=== PATIENT | female | born 1950 | race Two or more races ===

== ENCOUNTER 2018-06-18 13:30 | Outpatient (CLI) | payer MEDICARE, OTHER ==
[~2018-06-18 13:30] MED LIST: BP MEDICATION; DIABETES MEDICATION; DOES NOT RECALL MEDS; MAGN27TA2
== END 2018-06-18 23:59 | disposition home health service (06) ==
LOC: WOU 13:30
PROVIDERS: ATTEND Podiatrist Foot & Ankle Surgery
DX: E11.621 Type 2 diabetes mellitus with foot ulcer (principal); L97.523 Non-pressure chronic ulcer of other part of left foot with necrosis of muscle; B35.1 Tinea unguium; B35.3 Tinea pedis; E11.69 Type 2 diabetes mellitus with other specified complication; M86.672 Other chronic osteomyelitis, left ankle and foot; Z79.4 Long term (current) use of insulin
CPT/HCPCS: 11043; A6402; Z7610

== ENCOUNTER 2018-06-27 11:00 | Outpatient (CLI) | payer MEDICARE, OTHER | END 2018-06-27 23:59 | disposition home health service (06) | LOC: WOU 11:00 | PROVIDERS: ATTEND Podiatrist Foot & Ankle Surgery | DX: E11.621 Type 2 diabetes mellitus with foot ulcer (principal); L97.523 Non-pressure chronic ulcer of other part of left foot with necrosis of muscle; E11.69 Type 2 diabetes mellitus with other specified complication; M86.672 Other chronic osteomyelitis, left ankle and foot; I10 Essential (primary) hypertension; B35.1 Tinea unguium; B35.3 Tinea pedis; Z79.4 Long term (current) use of insulin; Z79.82 Long term (current) use of aspirin | CPT/HCPCS: 11043; A6402; Z7610 ==

== ENCOUNTER 2018-07-02 14:00 | Outpatient (CLI) | payer MEDICARE, OTHER ==
[2018-09-12] MEDS ORDERED: CIPR500T5 PO (08:25)
[2018-09-12] MEDS ORDERED: DOXY100C2 PO (08:25)
[2018-09-12] MEDS ORDERED: INSU100I26 SQ (08:25)
== END 2018-07-02 23:59 | disposition home health service (06) ==
LOC: WOU 14:00
PROVIDERS: ATTEND Podiatrist Foot & Ankle Surgery
PROC: 0JQR3ZZ Repair Left Foot Subcutaneous Tissue and Fascia, Percutaneous Approach (ICD-10-PCS; principal; 2018-07-02)
DX: E11.621 Type 2 diabetes mellitus with foot ulcer (principal); L97.525 Non-pressure chronic ulcer of other part of left foot with muscle involvement without evidence of necrosis; B35.1 Tinea unguium; B35.3 Tinea pedis; E11.42 Type 2 diabetes mellitus with diabetic polyneuropathy; E11.69 Type 2 diabetes mellitus with other specified complication; M86.672 Other chronic osteomyelitis, left ankle and foot; I10 Essential (primary) hypertension; Z79.4 Long term (current) use of insulin
CPT/HCPCS: 13131; A6402 ×2; Z7610

== ENCOUNTER 2018-07-09 14:00 | Outpatient (CLI) | payer MEDICARE, OTHER ==
[2018-09-12] MEDS ORDERED: DOXY100C2 PO (08:25)
[2018-09-12] MEDS ORDERED: INSU100I26 SQ (08:25)
[2018-09-12] MEDS ORDERED: CIPR500T5 PO (08:25)
== END 2018-07-09 23:59 | disposition home health service (06) ==
LOC: WOU 14:00
PROVIDERS: ATTEND Podiatrist Foot & Ankle Surgery
DX: E11.621 Type 2 diabetes mellitus with foot ulcer (principal); L97.525 Non-pressure chronic ulcer of other part of left foot with muscle involvement without evidence of necrosis; B35.1 Tinea unguium; L84 Corns and callosities; E11.42 Type 2 diabetes mellitus with diabetic polyneuropathy; I10 Essential (primary) hypertension; E11.69 Type 2 diabetes mellitus with other specified complication; M86.672 Other chronic osteomyelitis, left ankle and foot; L60.3 Nail dystrophy; Z79.4 Long term (current) use of insulin; Z79.899 Other long term (current) drug therapy
CPT/HCPCS: 11042; A6402

== ENCOUNTER 2018-07-16 14:15 | Outpatient (CLI) | payer MEDICARE, OTHER ==
[2018-09-12] MEDS ORDERED: CIPR500T5 PO (08:25)
[2018-09-12] MEDS ORDERED: DOXY100C2 PO (08:25)
[2018-09-12] MEDS ORDERED: INSU100I26 SQ (08:25)
== END 2018-07-16 23:59 | disposition home or self-care (01) ==
LOC: WOU 14:15
PROVIDERS: ATTEND Podiatrist Foot & Ankle Surgery
DX: E11.621 Type 2 diabetes mellitus with foot ulcer (principal); L97.528 Non-pressure chronic ulcer of other part of left foot with other specified severity; E11.42 Type 2 diabetes mellitus with diabetic polyneuropathy; T81.31XA Disruption of external operation (surgical) wound, not elsewhere classified, initial encounter; R60.0 Localized edema; M20.42 Other hammer toe(s) (acquired), left foot; Z79.4 Long term (current) use of insulin
CPT/HCPCS: 11042; A6402; Z7610 ×2

== ENCOUNTER 2018-07-23 14:00 | Outpatient (CLI) | payer MEDICARE, OTHER ==
[2018-09-12] MEDS ORDERED: DOXY100C2 PO (08:25)
[2018-09-12] MEDS ORDERED: INSU100I26 SQ (08:25)
[2018-09-12] MEDS ORDERED: CIPR500T5 PO (08:25)
== END 2018-07-23 23:59 | disposition home health service (06) ==
LOC: WOU 14:00
PROVIDERS: ATTEND Podiatrist Foot & Ankle Surgery
DX: E11.621 Type 2 diabetes mellitus with foot ulcer (principal); L97.522 Non-pressure chronic ulcer of other part of left foot with fat layer exposed; E11.42 Type 2 diabetes mellitus with diabetic polyneuropathy; R60.0 Localized edema; Z79.4 Long term (current) use of insulin; Z79.899 Other long term (current) drug therapy
CPT/HCPCS: 11042; A6402

== ENCOUNTER 2018-07-30 13:55 | Outpatient (CLI) | payer MEDICARE, OTHER ==
[2018-09-12] MEDS ORDERED: INSU100I26 SQ (08:25)
[2018-09-12] MEDS ORDERED: DOXY100C2 PO (08:25)
[2018-09-12] MEDS ORDERED: CIPR500T5 PO (08:25)
== END 2018-07-30 23:59 | disposition home health service (06) ==
LOC: WOU 13:55
PROVIDERS: ATTEND Podiatrist Foot & Ankle Surgery
DX: E11.621 Type 2 diabetes mellitus with foot ulcer (principal); L97.522 Non-pressure chronic ulcer of other part of left foot with fat layer exposed; E11.42 Type 2 diabetes mellitus with diabetic polyneuropathy; Z79.4 Long term (current) use of insulin; Z79.82 Long term (current) use of aspirin; Z79.899 Other long term (current) drug therapy
CPT/HCPCS: 11042; A6402

== ENCOUNTER 2018-08-06 14:06 | Outpatient (CLI) | payer MEDICARE, MEDICAID ==
[2018-09-12] MEDS ORDERED: CIPR500T5 PO (08:25)
[2018-09-12] MEDS ORDERED: INSU100I26 SQ (08:25)
[2018-09-12] MEDS ORDERED: DOXY100C2 PO (08:25)
== END 2018-08-06 23:59 | disposition home or self-care (01) ==
LOC: WOU 14:06
PROVIDERS: ATTEND Podiatrist Foot & Ankle Surgery
DX: E11.42 Type 2 diabetes mellitus with diabetic polyneuropathy (principal); Z86.31 Personal history of diabetic foot ulcer; R60.0 Localized edema; Z87.891 Personal history of nicotine dependence
CPT/HCPCS: G0463; Z7610

== ENCOUNTER 2018-09-10 14:15 | Outpatient (CLI) | payer MEDICARE, MEDICAID ==
[2018-09-10] MEDS ORDERED: INSU100V7 SQ (17:37)
[2018-09-10] MEDS ORDERED: ASPI-1169 PO (17:37)
[2018-09-10] MEDS ORDERED: DIPH25CA83 PO (17:37)
[2018-09-10] MEDS ORDERED: ERGO500040 PO (17:37)
[2018-09-10] MEDS ORDERED: OMEG1CAP PO (17:37)
[2018-09-10] MEDS ORDERED: HYDR25TA4 PO (17:37)
[2018-09-10] MEDS ORDERED: DICL100G16 TP (17:37)
[2018-09-10] MEDS ORDERED: AMLO10TA7 PO (17:37)
[2018-09-10] MEDS ORDERED: CICL6.6S TP (17:37)
[2018-09-10] MEDS ORDERED: TRAM50TA2 PO (17:37)
[2018-09-10] MEDS ORDERED: OMEG92TA PO (17:37)
[2018-09-10] MEDS ORDERED: BISA-79 PO (17:37)
[2018-09-10] MEDS ORDERED: FLUC200T PO (17:37)
[2018-09-10] MEDS ORDERED: OLME40TA12 PO (17:37)
[2018-09-10] MEDS ORDERED: INSU100I26 SQ (17:37)
[2018-09-10] MEDS ORDERED: ONDA4TAB11 PO (17:37)
[2018-09-10] MEDS ORDERED: DOCU100C36 PO (17:37)
[2018-09-10] MEDS ORDERED: MAGN400T6 PO (17:37)
[2018-09-10] MEDS ORDERED: FURO20TA4 PO (17:37)
[2018-09-10] MEDS ORDERED: SITA1TAB2 PO (17:37)
[2018-09-10] MEDS ORDERED: POTA8TAB3 PO (17:37)
[2018-09-10] MEDS ORDERED: INSU100I4 SQ (17:37)
[2018-09-11] MEDS ORDERED: FENTANYL PF 100MCG/2ML AMPUL ONE (07:32)
[2018-09-11] MEDS ORDERED: MIDAZOLAM HCL 2 MG/2ML VIAL ONE (07:33)
[2018-09-12] MEDS ORDERED: DOXY100C2 PO (08:25)
[2018-09-12] MEDS ORDERED: INSU100I26 SQ (08:25)
[2018-09-12] MEDS ORDERED: CIPR500T5 PO (08:25)
== END 2018-09-10 23:59 | disposition home health service (06) ==
LOC: WOU 14:15
PROVIDERS: ATTEND Podiatrist Foot & Ankle Surgery
DX: E11.622 Type 2 diabetes mellitus with other skin ulcer (principal); L97.318 Non-pressure chronic ulcer of right ankle with other specified severity; L03.115 Cellulitis of right lower limb; I10 Essential (primary) hypertension; Z79.4 Long term (current) use of insulin
CPT/HCPCS: 11043; A6402; J2250; J2704; J3010

== ENCOUNTER 2018-09-10 14:56 | Inpatient (IN) | payer MEDICARE, OTHER ==
[~2018-09-10] VITALS: Ht 154.9 cm; Wt 93.1 kg
--- NOTE | 2018-09-10 15:30 | NUR ---
RECEIVED PATIENT FROM WOUND CLINIC VIA WHEELCHAIR. PATIENT IS SCHEDULE FOR SURGERY/ WOUND DEBRIDEMENT OF RIGHT LOWER EXTREMITY TOMORROW. PATIENT IS AMBULATORY. A/OX4, ABLE TO MAKE NEEDS KNOWN. VS WNL. TOLERATING ROOM AIR, SPO2 >92%. FAMILY AT BEDSIDE. PATIENT REFUSED SKIN ASSESSMENT AT THIS TIME, PER PATIENT, "NO OTHER WOUNDS, WOUND ONLY ON RIGHT FOOT". PATIENT REFUSED TO WEAR GOWN AT THIS TIME, PER PATIENT "ILL CHANGE LATER TONIGHT". KEPT PATIENT SAFE AND COMFORTABLE. BED IN LOW/LOCKED POSITION SIDERAILS UPX2, CALL LIGHT IN REACH. WILL CONTINUE TO MONITOR ACCORDINGLY.
[2018-09-10 16:00] VITALS: BP 137/83
[2018-09-10] MEDS ORDERED: MAGNESIUM HYDROXIDE 30 ML UDC PO PRN (16:00)
[2018-09-10] MEDS ORDERED: HYDROCODONE/APAP 5/325MG 1 EACH TABLET PO PRN (16:00)
[2018-09-10] MEDS ORDERED: ZOLPIDEM TARTRATE 5 MG TABLET PO PRN (16:00)
[2018-09-10] MEDS ORDERED: ACETAMINOPHEN 325 MG TABLET PO PRN (16:00)
[2018-09-10] MEDS ORDERED: Z GUARD REMEDY 2 OZ OINT TP PRN (16:00)
[2018-09-10] MEDS ORDERED: MAG HYDROX/AL HYDROX/SIMETH 30 ML UDC PO PRN (16:00)
[2018-09-10] MEDS ORDERED: ONDANSETRON HCL/PF 4 MG/2 ML VIAL IVP PRN (16:00)
--- NOTE | 2018-09-10 16:00 | NUR ---
DR VILLANUEVA AT BEDSIDE, TALKING TO PATIENT. NEW ORDERS RECEIVED AND WILL CARRY OUT.
--- NOTE | 2018-09-10 16:49 | NUR ---
[facility] SWAB DONE AND CALLED LAB FOR SITE SAFETY REPRESENTATIVE
[2018-09-10 17:24] LABS: BASOPHILS % (AUTO) 0.4 % (0.0-2.0); EOSINOPHILS % (AUTO) 2.1 % (0.0-6.0); HEMATOCRIT 45 % (33-45); HEMOGLOBIN 15.1 g/dL (11.5-14.8); LYMPHOCYTES # (AUTO) 3.4 /CMM (0.8-4.8); LYMPHOCYTES % (AUTO) 34.4 % (20.0-44.0); MEAN CORPUSCULAR HGB CONC 34 g/dl (31.0-36.0); MEAN CORPUSCULAR VOLUME 84 fL (82-100); MONOCYTES # (AUTO) 0.6 /CMM (0.1-1.30); MONOCYTES % (AUTO) 5.8 % (2.0-12.0); NEUTROPHILS # (AUTO) 5.6 /CMM (1.8-8.9); NEUTROPHILS % (AUTO) 57.3 % (43.0-81.0); PLATELET COUNT (AUTO) 236 /CMM (150-450); RED BLOOD CELL COUNT(AUTO) 5.35 MIL/uL (4.0-5.2); WHITE BLOOD COUNT (AUTO) 9.8 K/uL (4.3-11.0)
--- NOTE | 2018-09-10 17:24 | NUR ---
WOUND CULTURE COLLECTED, PICKED UP BY LAB
[2018-09-10 17:32] LABS: CALCIUM, SERUM 9.6 mg/dL (8.5-10.1); CREATININE 0.8 mg/dL (0.6-1.3); POTASSIUM 5.1 mmol/L (3.5-5.1)
[2018-09-10] MEDS ORDERED: ONDA4TAB11 PO (17:37)
[2018-09-10] MEDS ORDERED: INSU100V7 SQ (17:37)
[2018-09-10] MEDS ORDERED: ERGO500040 PO (17:37)
[2018-09-10] MEDS ORDERED: BISA-79 PO (17:37)
[2018-09-10] MEDS ORDERED: INSU100I4 SQ (17:37)
[2018-09-10] MEDS ORDERED: DOCU100C36 PO (17:37)
[2018-09-10] MEDS ORDERED: OLME40TA12 PO (17:37)
[2018-09-10] MEDS ORDERED: CICL6.6S TP (17:37)
[2018-09-10] MEDS ORDERED: MAGN400T6 PO (17:37)
[2018-09-10] MEDS ORDERED: POTA8TAB3 PO (17:37)
[2018-09-10] MEDS ORDERED: HYDR25TA4 PO (17:37)
[2018-09-10] MEDS ORDERED: ASPI-1169 PO (17:37)
[2018-09-10] MEDS ORDERED: DIPH25CA83 PO (17:37)
[2018-09-10] MEDS ORDERED: DICL100G16 TP (17:37)
[2018-09-10] MEDS ORDERED: FLUC200T PO (17:37)
[2018-09-10] MEDS ORDERED: SITA1TAB2 PO (17:37)
[2018-09-10] MEDS ORDERED: TRAM50TA2 PO (17:37)
[2018-09-10] MEDS ORDERED: AMLO10TA7 PO (17:37)
[2018-09-10] MEDS ORDERED: INSU100I26 SQ (17:37)
[2018-09-10] MEDS ORDERED: FURO20TA4 PO (17:37)
[2018-09-10] MEDS ORDERED: OMEG92TA PO (17:37)
[2018-09-10] MEDS ORDERED: OMEG1CAP PO (17:37)
[2018-09-10] MEDS ORDERED: FEE PK DOSING 1 MIN EA MC ONE (18:02)
[2018-09-10] MEDS: IV D5/0.45 NACL 1,000 ML IV PRN (18:28)
--- NOTE | 2018-09-10 18:51 | NUR ---
RN CLOSING NOTES PATIENT IN STABLE CONDITION. ALL NEEDS ATTENDED AND PROVIDED. ASSISTED WITH ADLS. KEPT PATIENT SAFE AND COMFORTABLE. BED IN LOW/LOCKED POSITION, SIDERAILS UPX2, SEMIFOWLERS, CALL LIGHT IN REACH. WILL CONTINUE TO MONITOR ACCORDINGLY. Addendum: 09/10/18 at 1853 by ELAN BURNS WILL ENDORSED TO NIGHT RN FOR LEYLA.
--- NOTE | 2018-09-10 18:52 | NUR ---
INSERTED IV ACCESS ON LEFT FOREARM GAUGE 22, INTACT AND PATENT. IVF INFUSING AT 75ML/HR.
--- NOTE | 2018-09-10 19:31 | NUR ---
MS RN NOTES RECEIVED ON BED A/O X4,SPEAK WALLISIAN WITH LITTLE GRENADIAN,VISITOR AT BEDSIDE.IVF INFUSING AT 75ML/HR RATE ON LFA,SITE PATENT.RIGHT FOOT DRESSING INTACT AND DRY.INSTRUCTED NPO POST MIDNIGHT FOR SURGERY IN THE MORNING,CONSENT SIGNED BY PATIENT ON CHART.CALL LIGHT IN REACH,NEEDS ANTICIPATED.
[2018-09-10] MEDS: VANCOMYCIN 0.75 GM in IV D5W 250 ML IV SCH (19:58)
[2018-09-10 20:00] VITALS: BP 146/85
[2018-09-10 20:06] VITALS: BP 146/85
[2018-09-10] MEDS: ZOSYN IVPB 3.375 G in IV D5W 50ml IV SCH (21:04)
--- NOTE | 2018-09-10 23:00 | NUR ---
MS RN NOTES SLEEPING AT THIS TIME,RELATIVE AT BEDSIDE.
[2018-09-11] MEDS: ZOSYN IVPB 3.375 G in IV D5W 50ml IV SCH ×4 (03:10→21:01)
--- NOTE | 2018-09-11 06:19 | NUR ---
MS RN NOTES SLEPT WELL AT NIGHT DENIES PAIN,IVF IN PROGRESS,NPO POST MIDNIGHT FOR RIGHT FOOT DEBRIDEMENT,IV ABX INFUSED TOLERATED WELL.IN NO ACUTE DISTRESS.WILL ENDORSE TO DAY NURSE FOR LEYLA.
--- NOTE | 2018-09-11 06:30 | NUR ---
MS RN NOTES SEEN AND EXAMINED BY DR MARQUEZ,CLEARED FOR SURGERY.
[2018-09-11] MEDS: VANCOMYCIN 0.75 GM in IV D5W 250 ML IV SCH (06:39)
[2018-09-11 06:58] LABS: BASOPHILS # (AUTO) 0.1 /CMM (0.0-0.2); BASOPHILS % (AUTO) 0.5 % (0.0-2.0); EOSINOPHILS % (AUTO) 2.6 % (0.0-6.0); HEMATOCRIT 45 % (33-45); LYMPHOCYTES % (AUTO) 41.3 % (20.0-44.0); MEAN CORPUSCULAR HGB CONC 33 g/dl (31.0-36.0); MEAN CORPUSCULAR VOLUME 84 fL (82-100); MONOCYTES # (AUTO) 0.8 /CMM (0.1-1.30); MONOCYTES % (AUTO) 6.8 % (2.0-12.0); NEUTROPHILS # (AUTO) 5.9 /CMM (1.8-8.9); NEUTROPHILS % (AUTO) 48.8 % (43.0-81.0); PLATELET COUNT (AUTO) 244 /CMM (150-450); RED BLOOD CELL COUNT(AUTO) 5.32 MIL/uL (4.0-5.2); WHITE BLOOD COUNT (AUTO) 12.1 K/uL (4.3-11.0)
--- NOTE | 2018-09-11 07:00 | NUR ---
MS RN NOTES TO SURGERY BY BED ACCOMPANIED BY TWO OR TECH IN STABLE CONDITION.
--- NOTE | 2018-09-11 07:00 | NUR ---
WOUND CARE CONSULT WOUND CARE RECEIVED CONSULT FOR RIGHT LOWER POSTERIOR ANKLE WOUND. WOUND CARE WILL DEFER CONSULT AND ALL TREATMENT PLANS TO DPM DR WALKER WHO IS CURRENTLY FOLLOWING THIS PATIENT. PATIENT WITH AMBERLY AT 20, WILL SEE PRN.
[2018-09-11 07:08] LABS: CALCIUM, SERUM 9.4 mg/dL (8.5-10.1); CREATININE 0.8 mg/dL (0.6-1.3); MAGNESIUM 2.1 mg/dL (1.8-2.4); PHOSPHORUS 4.3 mg/dL (2.5-4.9); POTASSIUM 3.9 mmol/L (3.5-5.1)
[2018-09-11] MEDS ORDERED: LIDOCAINE HCL/PF 1% 30 ML SDV ONE (07:20)
[2018-09-11] MEDS ORDERED: ANESTHESIA TRAY IN PYXIS 1 EA TRAY MC ONE (07:20)
[2018-09-11] MEDS ORDERED: BUPIVACAINE 0.5 % PF 150 MG/30 ML VIAL ONE (07:20)
[2018-09-11] MEDS ORDERED: BUPIVACAINE MPF 0.5% W/EPI INJ 30 ML VIAL ONE (07:21)
--- NOTE | 2018-09-11 07:35 | NUR ---
RN OPENING NOTE PT WAS NOTED TO BE AT THE OR AT THIS TIME
[2018-09-11] MEDS ORDERED: BACITRACIN 50000 UNITS/VIAL ONE (07:49)
[2018-09-11] MEDS ORDERED: VANCOMYCIN 1 GM VIAL ONE (07:49)
[2018-09-11] MEDS ORDERED: BISACODYL (5 MG) 5 MG TABLET.DR PO PRN (08:00)
[2018-09-11] MEDS ORDERED: diphenhydrAMINE HCL 25 MG CAPSULE PO PRN (08:00)
[2018-09-11] MEDS ORDERED: DEXTROSE 50%-WATER 50 ML DISP.SYRIN IV PRN (08:30)
[2018-09-11] MEDS ORDERED: *INSULIN REGULAR(HUMULIN R)HUM 100 UNIT/ML VIAL SQ PRN (08:30)
[2018-09-11] MEDS ORDERED: FUROSEMIDE 20 MG TABLET PO SCH (09:00)
--- NOTE | 2018-09-11 09:27 | NUR ---
MINE NOTE PT WAS BROUGHT BACK FROM THE OR AT THIS TIME, NOTED TO HAVE RLE CAST IN PLACE, WILL MONITOR ACCORDINGLY Addendum: 09/11/18 at 0929 by DANIELITO DUNLAP RN RN NOTE PT WAS BROUGHT BACK FROM THE OR AT THIS TIME, NOTED TO HAVE RLE CAST IN PLACE, A/O X3, BREATHING EVEN AND UNLABORED ON 2L VIA NC SAT WELL, NO S/S OF PAIN OR DISTRESS, WILL MONITOR ACCORDINGLY
[2018-09-11] MEDS: ASPIRIN 81 MG TAB.CHEW PO SCH (09:37)
[2018-09-11] MEDS: DOCUSATE SODIUM 100 MG CAPSULE PO SCH ×2 (09:38→21:03)
[2018-09-11] MEDS: PANTOPRAZOLE 40 MG TABLET.DR PO SCH (09:38)
[2018-09-11] MEDS: MAGNESIUM OXIDE 400 MG TABLET PO SCH (09:39)
[2018-09-11] MEDS: TRAMADOL HCL 50 MG TABLET PO SCH (09:40)
[2018-09-11] MEDS: VALSARTAN 80 MG TABLET PO SCH (09:40)
[2018-09-11] MEDS: AMLODIPINE BESYLATE 10 MG TABLET PO SCH (09:41)
[2018-09-11 09:53] VITALS: BP 121/78
[2018-09-11] MEDS: INSULIN REGULAR, HUMAN 100 UNIT/ML 3 ML VIAL SQ PRN ×2 (11:56→17:22)
[2018-09-11] MEDS: BLOOD SUGAR DIAGNOSTIC 1 EACH STRIP VI SCH ×3 (11:57→21:55)
[2018-09-11] MEDS: IV D5/0.45 NACL 1,000 ML IV PRN (14:22)
[2018-09-11 16:00] VITALS: BP_SYST 118; BP_SYST 168; BP_DIAS 71; BP_DIAS 88
[2018-09-11] MEDS: LACTOBACILLUS RHAMNOSUS GG 1 EACH CAP.SPRINK PO SCH (16:05)
--- NOTE | 2018-09-11 18:39 | NUR ---
RN CLOSING NOTE PT IN BED AT LOWEST AND LOCKED POSITION WITH SIDE RAILS UP X2, A/O X3 VENEZUELAN SPEAKING, BREATHING EVEN AND UNLABORED, NO COMPLAINTS OF PAIN OR ANY DISTRESS AT THIS TIME, IV IS PATENT AND INTACT, NON WEIGHT BEARING ON RLE WITH A CAST ON, ALL NEEDS ATTENDED TO, WILL ENDORSE TO HVAC PROJECT MANAGER RN FOR LEYLA.
--- NOTE | 2018-09-11 19:00 | NUR ---
MS RN NOTES RECEIVED ON BED A/O X3,S/P RIGHT FOOT SURGERY WITH CASTING TODAY,RIGHT LEG ELEVATED ON PILLOWS AT ALL TIMES ORDERED.INSTRUCTED NON WEIGHT BEARING ON RIGHT FOOT.DENIES PAIN.IV SITE INFILTRATED.NEW IV SALINE LOCK PLACE ON RIGHT FORE ARM #22,SAME IVF IN PROGRESS AT THIS TIME.OLD HL REMOVED.GRAND DAUGHTER AT BEDSIDE.BED ON LOWEST POSITION AND LOCKED.CALL LIGHT IN REACH,NEEDS ANTICIPATED.
[2018-09-11 20:00] VITALS: BP 129/69
--- NOTE | 2018-09-11 20:00 | NUR ---
MS RN NOTES VANCOMYCIN TROUGH WAS 5,PHARMACY MADE AWARE,VANCO DOSE CHANGED BY PHARMACIST TO 1 GM Q 12,STARTED.
[2018-09-11] MEDS: VANCOMYCIN 1 GM in IV D5W 250 ML IV SCH (20:03)
[2018-09-11] MEDS ORDERED: INSULIN GLARGINE, 100 UNIT/ML CARTRIDGE SQ SCH (22:00)
--- NOTE | 2018-09-11 22:07 | NUR ---
MS RN NOTES ACCU-CHECK BLOOD SUGAR CHECK 246,REFUSED HUMULIN R SLIDING SCALE COVERAGE,SHE ONLY WANT LANTUS 40 UNITS AT HS.
[2018-09-11] MEDS ORDERED: INSULIN GLARGINE, 100 UNIT/ML CARTRIDGE SQ ONE (22:19)
[2018-09-12] MEDS: ZOSYN IVPB 3.375 G in IV D5W 50ml IV SCH (03:01)
[2018-09-12] MEDS ORDERED: ERGOCALCIFEROL (VITAMIN D 2) 50,000 UNIT CAPSULE PO SCH (06:00)
--- NOTE | 2018-09-12 06:20 | NUR ---
MS RN NOTES ABLE TO SLEEP AFTER 3AM,IVF FLUIDS IN PROGRESS AT THIS TIME,GRAND DAUGHTER SLEEPING ON CAMERON CHAIR,DENIES PAIN ON THE RIGHT FOOT,AWARE OF NWB ON RIGHT FOOT.POSSIBLE D/C HOME TODAY.IN NO ACUTE DISTRESS.WILL ENDORSE TO DAY NURSE FOR LEYLA.
[2018-09-12] MEDS: BLOOD SUGAR DIAGNOSTIC 1 EACH STRIP VI SCH (07:14)
[2018-09-12] MEDS: INSULIN REGULAR, HUMAN 100 UNIT/ML 3 ML VIAL SQ PRN (07:17)
--- NOTE | 2018-09-12 07:34 | NUR ---
RN OPENING NOTE PT IN BED AT LOWEST AND LOCKED POSITION WITH SIDE RAILS UP X2, A/O X3 SAUDI ARABIAN SPEAKING, BREATHING EVEN AND UNLABORED, NO COMPLAINTS OF PAIN OR ANY DISTRESS AT THIS TIME, IV IS PATENT AND INTACT, NON WEIGHT BEARING ON RLE WITH A CAST ON, ALL NEEDS ATTENDED TO, WILL MONITOR ACCORDINGLY.
[2018-09-12 08:00] VITALS: BP 145/85
[2018-09-12] MEDS: VANCOMYCIN 1 GM in IV D5W 250 ML IV SCH (08:08)
[2018-09-12] MEDS: MAGNESIUM OXIDE 400 MG TABLET PO SCH (08:09)
[2018-09-12] MEDS: PANTOPRAZOLE 40 MG TABLET.DR PO SCH (08:09)
[2018-09-12] MEDS: LACTOBACILLUS RHAMNOSUS GG 1 EACH CAP.SPRINK PO SCH (08:09)
[2018-09-12] MEDS: ASPIRIN 81 MG TAB.CHEW PO SCH (08:09)
[2018-09-12] MEDS: TRAMADOL HCL 50 MG TABLET PO SCH (08:10)
[2018-09-12] MEDS: DOCUSATE SODIUM 100 MG CAPSULE PO SCH (08:10)
[2018-09-12 08:12] VITALS: BP 145/85
[2018-09-12] MEDS: VALSARTAN 80 MG TABLET PO SCH (08:12)
[2018-09-12] MEDS: AMLODIPINE BESYLATE 10 MG TABLET PO SCH (08:12)
[2018-09-12] MEDS ORDERED: DOXY100C2 PO (08:25)
[2018-09-12] MEDS ORDERED: CIPR500T5 PO (08:25)
[2018-09-12] MEDS ORDERED: INSU100I26 SQ (08:25)
[2018-09-12 08:28] LABS: BASOPHILS # (AUTO) 0.1 /CMM (0.0-0.2); BASOPHILS % (AUTO) 1.2 % (0.0-2.0); EOSINOPHILS % (AUTO) 2.4 % (0.0-6.0); HEMATOCRIT 42 % (33-45); HEMOGLOBIN 14.5 g/dL (11.5-14.8); LYMPHOCYTES # (AUTO) 3.8 /CMM (0.8-4.8); LYMPHOCYTES % (AUTO) 37.6 % (20.0-44.0); MEAN CORPUSCULAR HGB CONC 34 g/dl (31.0-36.0); MEAN CORPUSCULAR VOLUME 83 fL (82-100); MONOCYTES # (AUTO) 0.7 /CMM (0.1-1.30); MONOCYTES % (AUTO) 6.5 % (2.0-12.0); NEUTROPHILS # (AUTO) 5.3 /CMM (1.8-8.9); NEUTROPHILS % (AUTO) 52.3 % (43.0-81.0); PLATELET COUNT (AUTO) 228 /CMM (150-450); WHITE BLOOD COUNT (AUTO) 10.2 K/uL (4.3-11.0)
[2018-09-12 08:40] LABS: CALCIUM, SERUM 9.1 mg/dL (8.5-10.1); CREATININE 0.8 mg/dL (0.6-1.3); MAGNESIUM 2.3 mg/dL (1.8-2.4); PHOSPHORUS 4.3 mg/dL (2.5-4.9); POTASSIUM 3.8 mmol/L (3.5-5.1)
[2018-09-12] MEDS ORDERED: ATORVASTATIN 10 MG TABLET PO SCH (09:00)
--- NOTE | 2018-09-12 09:45 | NUR ---
DISCHARGE NOTE PT WAS D/C AT THIS TIME BACK HOME IN MEDICALLY STABLE CONDITION WITH HER NIECE WHO TOOK HER IN HER PRIVATE CAR. IV AND ID BAND WERE REMOVED. D/C PAPERWORK, EXITCARE, AND BELONGINGS LIST WERE SIGNED, DISCUSSED, AND HANDED TO THE PATIENT. PICTURES OF CAST WERE TAKEN. THEY WERE INFORMED TO FOLLOW UP WITH PODIATRY WITHIN A FEW WEEKS. ALL NEEDS WERE ATTENDED TO DURING HER STAY. SHE WAS TAKEN DOWN BY CLARISA MALDONADO IN A WHEELCHAIR WHERE THEY LEFT IN THEIR PRIVATE CARE BACK HOME.
== END 2018-09-12 09:44 | disposition home health service (06) | DRG 623 ==
LOC: WOUND3 14:56
PROVIDERS: ADMIT Student in an Organized Health Care Education/Training Program; ATTEND Student in an Organized Health Care Education/Training Program
PROC: 0JBQ0ZZ Excision of Right Foot Subcutaneous Tissue and Fascia, Open Approach (ICD-10-PCS; principal; 2018-09-11)
DX: E11.621 Type 2 diabetes mellitus with foot ulcer (principal); L03.115 Cellulitis of right lower limb; L97.418 Non-pressure chronic ulcer of right heel and midfoot with other specified severity; E11.51 Type 2 diabetes mellitus with diabetic peripheral angiopathy without gangrene; E11.42 Type 2 diabetes mellitus with diabetic polyneuropathy; I10 Essential (primary) hypertension; F17.210 Nicotine dependence, cigarettes, uncomplicated; Z79.4 Long term (current) use of insulin
CPT/HCPCS: 36415; 71045-TC; 80048-TC; 80061-TC; 80202-TC; 82962-TC; 83735-TC; 84100-TC; 85025-TC; 85610-TC; 85652-TC; 86140-TC; 87070-TC; 87075-TC; 87081-TC; 87186-TC; 93307-TC; A6402; J1815; J2543; J2704; J3370; J3490; J7060

== ENCOUNTER 2018-09-24 14:00 | Outpatient (CLI) | payer MEDICARE, OTHER ==
[~2018-09-24 14:00] MED LIST changes: +AMLO10TA7 PO; +ASPI-1169 PO; +BISA-79 PO; -BP MEDICATION; +CICL6.6S TP; +CIPR500T5 PO; -DIABETES MEDICATION; +DICL100G16 TP; +DIPH25CA83 PO; +DOCU100C36 PO; -DOES NOT RECALL MEDS; +DOXY100C2 PO; +ERGO500040 PO; +FLUC200T PO; +FURO20TA4 PO; +HYDR25TA4 PO; +INSU100I26 SQ; +INSU100I4 SQ; -MAGN27TA2; +MAGN400T6 PO; +OLME40TA12 PO; +OMEG1CAP PO; +OMEG92TA PO; +ONDA4TAB11 PO; +POTA8TAB3 PO; +SITA1TAB2 PO; +TRAM50TA2 PO
== END 2018-09-24 23:59 | disposition home health service (06) ==
LOC: WOU 14:00
PROVIDERS: ATTEND Podiatrist Foot & Ankle Surgery
DX: E11.621 Type 2 diabetes mellitus with foot ulcer (principal); L97.512 Non-pressure chronic ulcer of other part of right foot with fat layer exposed; L97.321 Non-pressure chronic ulcer of left ankle limited to breakdown of skin; E11.622 Type 2 diabetes mellitus with other skin ulcer; E11.42 Type 2 diabetes mellitus with diabetic polyneuropathy; S90.121A Contusion of right lesser toe(s) without damage to nail, initial encounter; X58.XXXA Exposure to other specified factors, initial encounter; Y92.89 Other specified places as the place of occurrence of the external cause; Z79.4 Long term (current) use of insulin; Z79.899 Other long term (current) drug therapy; Z79.82 Long term (current) use of aspirin
CPT/HCPCS: A6209; A6402; G0463

== ENCOUNTER 2019-01-21 14:15 | Outpatient (CLI) | payer MEDICARE, OTHER | END 2019-01-21 23:59 | disposition home or self-care (01) | LOC: WOU 14:15 | PROVIDERS: ATTEND Podiatrist Foot & Ankle Surgery | DX: E11.621 Type 2 diabetes mellitus with foot ulcer (principal); L97.422 Non-pressure chronic ulcer of left heel and midfoot with fat layer exposed; L97.412 Non-pressure chronic ulcer of right heel and midfoot with fat layer exposed; L97.522 Non-pressure chronic ulcer of other part of left foot with fat layer exposed; E11.42 Type 2 diabetes mellitus with diabetic polyneuropathy; F17.200 Nicotine dependence, unspecified, uncomplicated; Z79.4 Long term (current) use of insulin; I10 Essential (primary) hypertension; M81.0 Age-related osteoporosis without current pathological fracture; M21.42 Flat foot [pes planus] (acquired), left foot; M21.41 Flat foot [pes planus] (acquired), right foot; M19.072 Primary osteoarthritis, left ankle and foot; M19.071 Primary osteoarthritis, right ankle and foot | CPT/HCPCS: 11042; 73630 ×2; A6402 ==

== ENCOUNTER 2019-01-27 14:15 | Outpatient (CLI) | payer MEDICARE, OTHER | END 2019-01-27 23:59 | disposition home or self-care (01) | LOC: WOU 14:15 | PROVIDERS: ATTEND Podiatrist Foot & Ankle Surgery | DX: E11.621 Type 2 diabetes mellitus with foot ulcer (principal); L97.522 Non-pressure chronic ulcer of other part of left foot with fat layer exposed; L97.512 Non-pressure chronic ulcer of other part of right foot with fat layer exposed; E11.42 Type 2 diabetes mellitus with diabetic polyneuropathy; Z79.4 Long term (current) use of insulin; I10 Essential (primary) hypertension; F17.200 Nicotine dependence, unspecified, uncomplicated | CPT/HCPCS: 11042 ==

== ENCOUNTER 2019-02-03 12:55 | Outpatient (CLI) | payer MEDICARE, OTHER | END 2019-02-03 23:59 | disposition home or self-care (01) | LOC: WOU 12:55 | PROVIDERS: ATTEND Podiatrist Foot & Ankle Surgery | DX: E11.621 Type 2 diabetes mellitus with foot ulcer (principal); L97.522 Non-pressure chronic ulcer of other part of left foot with fat layer exposed; L97.512 Non-pressure chronic ulcer of other part of right foot with fat layer exposed; M21.41 Flat foot [pes planus] (acquired), right foot; M21.42 Flat foot [pes planus] (acquired), left foot; F17.200 Nicotine dependence, unspecified, uncomplicated; Z79.4 Long term (current) use of insulin | CPT/HCPCS: 11042 ==

== ENCOUNTER 2019-10-13 13:40 | Outpatient (CLI) | payer MEDICARE, OTHER ==
[~2019-10-13 13:40] MED LIST changes: -MAGN400T6 PO; +MAGN400T8 PO
== END 2019-10-13 23:59 | disposition home or self-care (01) ==
LOC: WOU 13:40
PROVIDERS: ATTEND Podiatrist Foot & Ankle Surgery
DX: E11.621 Type 2 diabetes mellitus with foot ulcer (principal); L97.522 Non-pressure chronic ulcer of other part of left foot with fat layer exposed; E11.42 Type 2 diabetes mellitus with diabetic polyneuropathy; F17.200 Nicotine dependence, unspecified, uncomplicated; Z89.432 Acquired absence of left foot; I10 Essential (primary) hypertension
CPT/HCPCS: 11042

== ENCOUNTER 2019-10-20 14:00 | Outpatient (CLI) | payer MEDICARE, OTHER | END 2019-10-20 23:59 | disposition home or self-care (01) | LOC: WOU 14:00 | PROVIDERS: ATTEND Podiatrist Foot & Ankle Surgery | DX: E11.621 Type 2 diabetes mellitus with foot ulcer (principal); L97.525 Non-pressure chronic ulcer of other part of left foot with muscle involvement without evidence of necrosis; E11.42 Type 2 diabetes mellitus with diabetic polyneuropathy; F17.200 Nicotine dependence, unspecified, uncomplicated; Z89.422 Acquired absence of other left toe(s); L03.116 Cellulitis of left lower limb; Z79.4 Long term (current) use of insulin | CPT/HCPCS: 11043 ==

== ENCOUNTER 2019-10-23 11:00 | Outpatient (CLI) | payer MEDICARE, OTHER | END 2019-10-23 23:59 | disposition home or self-care (01) | LOC: RAD 11:00 | PROVIDERS: ATTEND Podiatrist Foot & Ankle Surgery | DX: E11.621 Type 2 diabetes mellitus with foot ulcer (principal); M19.072 Primary osteoarthritis, left ankle and foot; M77.32 Calcaneal spur, left foot; M21.42 Flat foot [pes planus] (acquired), left foot; M79.89 Other specified soft tissue disorders | CPT/HCPCS: 73630-TC ==

== ENCOUNTER 2019-10-26 11:38 | Outpatient (CLI) | payer MEDICARE, OTHER ==
[2019-11-05] MEDS ORDERED: APIX5TAB4 PO (13:02)
== END 2019-10-26 23:59 | disposition home or self-care (01) ==
LOC: MRI 11:38
PROVIDERS: ATTEND Podiatrist Foot & Ankle Surgery
DX: M19.072 Primary osteoarthritis, left ankle and foot (principal); M86.8X7 Other osteomyelitis, ankle and foot; L97.529 Non-pressure chronic ulcer of other part of left foot with unspecified severity; L03.116 Cellulitis of left lower limb; R60.0 Localized edema; M77.32 Calcaneal spur, left foot; M62.58 Muscle wasting and atrophy, not elsewhere classified, other site; M79.89 Other specified soft tissue disorders; Z89.022 Acquired absence of left finger(s)
CPT/HCPCS: 73718-TC

== ENCOUNTER 2019-10-27 12:45 | Outpatient (CLI) | payer MEDICARE, OTHER | END 2019-10-27 23:59 | disposition home or self-care (01) | LOC: WOU 12:45 | PROVIDERS: ATTEND Podiatrist Foot & Ankle Surgery | DX: E11.621 Type 2 diabetes mellitus with foot ulcer (principal); L97.522 Non-pressure chronic ulcer of other part of left foot with fat layer exposed; E11.42 Type 2 diabetes mellitus with diabetic polyneuropathy; E11.69 Type 2 diabetes mellitus with other specified complication; M86.172 Other acute osteomyelitis, left ankle and foot; Z79.4 Long term (current) use of insulin; F17.200 Nicotine dependence, unspecified, uncomplicated; Z89.422 Acquired absence of other left toe(s) | CPT/HCPCS: 11042 ==

== ENCOUNTER 2019-10-28 08:00 | Outpatient (CLI) | payer MEDICARE, OTHER | END 2019-10-28 23:59 | disposition home health service (06) | LOC: WOU 08:00 | PROVIDERS: ATTEND Specialist | DX: Z01.818 Encounter for other preprocedural examination (principal); E11.69 Type 2 diabetes mellitus with other specified complication; E11.621 Type 2 diabetes mellitus with foot ulcer; E11.42 Type 2 diabetes mellitus with diabetic polyneuropathy; M86.672 Other chronic osteomyelitis, left ankle and foot; L97.522 Non-pressure chronic ulcer of other part of left foot with fat layer exposed; Z79.4 Long term (current) use of insulin; I10 Essential (primary) hypertension; F17.200 Nicotine dependence, unspecified, uncomplicated; Z89.422 Acquired absence of other left toe(s) | CPT/HCPCS: G0463 ==

== ENCOUNTER 2019-10-29 11:52 | Outpatient (CLI) | payer MEDICARE, OTHER | END 2019-10-29 23:59 | disposition home or self-care (01) | LOC: WOU 11:52 | PROVIDERS: ATTEND Internal Medicine Infectious Disease | DX: E11.621 Type 2 diabetes mellitus with foot ulcer (principal); E11.69 Type 2 diabetes mellitus with other specified complication; E11.51 Type 2 diabetes mellitus with diabetic peripheral angiopathy without gangrene; M86.9 Osteomyelitis, unspecified; L97.529 Non-pressure chronic ulcer of other part of left foot with unspecified severity; I10 Essential (primary) hypertension; E66.9 Obesity, unspecified; Z87.891 Personal history of nicotine dependence; R05 Cough; I70.0 Atherosclerosis of aorta | CPT/HCPCS: 71046; G0463 ==

== ENCOUNTER 2019-10-30 10:35 | Outpatient (CLI) | payer MEDICARE, OTHER ==
[2019-10-30 13:05] LABS: BASOPHILS % (AUTO) 0.4 % (0.0-2.0); EOSINOPHILS % (AUTO) 1.9 % (0.0-6.0); HEMATOCRIT 41 % (33-45); HEMOGLOBIN 13.3 g/dL (11.5-14.8); LYMPHOCYTES # (AUTO) 4.4 /CMM (0.8-4.8); LYMPHOCYTES % (AUTO) 40.1 % (20.0-44.0); MEAN CORPUSCULAR HGB CONC 32 g/dl (31.0-36.0); MEAN CORPUSCULAR VOLUME 82 fL (82-100); MONOCYTES % (AUTO) 5.8 % (2.0-12.0); NEUTROPHILS # (AUTO) 5.7 /CMM (1.8-8.9); NEUTROPHILS % (AUTO) 51.8 % (43.0-81.0); PLATELET COUNT (AUTO) 253 /CMM (150-450); RED BLOOD CELL COUNT(AUTO) 5.05 MIL/uL (4.0-5.2); WHITE BLOOD COUNT (AUTO) 11.1 K/uL (4.3-11.0)
[2019-10-30 13:06] LABS: MONOCYTES # (AUTO) 0.6 /CMM (0.1-1.30)
[2019-10-30 13:10] LABS: ALBUMIN 3.4 g/dL (3.4-5.0)
[2019-10-30 13:12] LABS: C-REACTIVE PROTEIN 0.4 mg/dL (0.0-0.9); PREALBUMIN 24.6 MG/DL (18.0-35.7)
[2019-10-30 13:17] LABS: ALBUMIN 3.4 g/dL (3.4-5.0); BILIRUBIN,TOTAL 0.4 mg/dL (0.2-1.0); CALCIUM, SERUM 8.7 mg/dL (8.5-10.1); CREATININE 0.9 mg/dL (0.6-1.3); POTASSIUM 3.9 mmol/L (3.5-5.1); TOTAL PROTEIN, SERUM 7.6 g/dL (6.4-8.2)
[2019-11-05] MEDS ORDERED: APIX5TAB4 PO (13:02)
== END 2019-10-30 23:59 | disposition home or self-care (01) ==
LOC: WOU 10:35
PROVIDERS: ATTEND Internal Medicine Infectious Disease
DX: Z45.2 Encounter for adjustment and management of vascular access device (principal); E11.69 Type 2 diabetes mellitus with other specified complication; M86.8X7 Other osteomyelitis, ankle and foot
CPT/HCPCS: 36415; 36569; 80053; 82040; 83036; 84134; 85025; 85652; 86140; C1751

== ENCOUNTER 2019-11-03 11:19 | Inpatient (IN) | payer MEDICARE, OTHER ==
[~2019-11-03] VITALS: Ht 162.6 cm; Wt 89.8 kg
--- NOTE | 2019-11-03 11:37 | NUR ---
bibdaughter, from wound center, c/o left arm pain s/p picc line insertion 4 days ago, swelling and itching. on room air, breathing evenly and unlabored. kept comfortable, will continue to monitor accordingly.
[2019-11-03 12:00] LABS: BASOPHILS # (AUTO) 0.1 /CMM (0.0-0.2); BASOPHILS % (AUTO) 0.7 % (0.0-2.0); EOSINOPHILS % (AUTO) 2.4 % (0.0-6.0); HEMATOCRIT 41 % (33-45); HEMOGLOBIN 13.2 g/dL (11.5-14.8); LYMPHOCYTES # (AUTO) 4.1 /CMM (0.8-4.8); LYMPHOCYTES % (AUTO) 33.3 % (20.0-44.0); MEAN CORPUSCULAR HGB CONC 32 g/dl (31.0-36.0); MEAN CORPUSCULAR VOLUME 82 fL (82-100); MONOCYTES # (AUTO) 0.8 /CMM (0.1-1.30); MONOCYTES % (AUTO) 6.4 % (2.0-12.0); NEUTROPHILS % (AUTO) 57.2 % (43.0-81.0); PLATELET COUNT (AUTO) 191 /CMM (150-450); RED BLOOD CELL COUNT(AUTO) 4.96 MIL/uL (4.0-5.2); WHITE BLOOD COUNT (AUTO) 12.2 K/uL (4.3-11.0)
[2019-11-03 12:07] LABS: CALCIUM, SERUM 9.3 mg/dL (8.5-10.1); CREATININE 0.8 mg/dL (0.6-1.3); POTASSIUM 3.9 mmol/L (3.5-5.1)
--- NOTE | 2019-11-03 12:41 | NUR ---
left upper arm picc line discontinued as MD ordered due to DVT, tip intact, no bleeding noted. pressure applied with dry gauze. Will continue to monitor accordingly. Initiated IV access on the Right hand G18.
--- NOTE | 2019-11-03 12:49 | NUR ---
CALLED HOUSE SUP FOR PICC LINE.
[2019-11-03] MEDS ORDERED: HEPARIN SODIUM,PORCINE/PF 50 UNIT/5 ML DISP.SYRIN IV ONE (13:00)
[2019-11-03] MEDS ORDERED: HEPARIN SODIUM, PORCINE 5000 UNITS/1 ML VIAL ONE (13:06)
[2019-11-03] MEDS: HEPARIN INFUSION/D5W 500 ML IV PRN (13:30)
--- NOTE | 2019-11-03 13:44 | NUR ---
Mary ([facility]) [phone]
--- NOTE | 2019-11-03 14:40 | NUR ---
picc line nurse at bedside for procedure
--- NOTE | 2019-11-03 15:07 | NUR ---
report given to Micki BLOUNT for fiona.
--- NOTE | 2019-11-03 15:07 | NUR ---
per picc line RN okay to use picc line on the ART 2 lumen
--- NOTE | 2019-11-03 15:25 | NUR ---
wheeled patient via wheelchair in no distress, heparin drip still infusing. RN at bedside to assume care.
[2019-11-03 16:00] VITALS: BP 135/75
--- NOTE | 2019-11-03 16:00 | NUR ---
ms rn received a new admission, from er, awake,alert,oriented x4, not in any form of distress, came in w/ dx of left upper arm dvt, from previous picc line, new picc line on right upper arm, and g18 at right forearm, received patient on heparin drip, next ptt will be at 730 tonight.
--- NOTE | 2019-11-03 17:30 | NUR ---
sock turner orders made by channing pickens/ orders made and carried out.
[2019-11-03] MEDS ORDERED: MAG HYDROX/AL HYDROX/SIMETH 30 ML UDC PO PRN (18:00)
[2019-11-03] MEDS ORDERED: ONDANSETRON HCL/PF 4 MG/2 ML VIAL IVP PRN (18:00)
[2019-11-03] MEDS ORDERED: Z GUARD REMEDY 2 OZ OINT TP PRN (18:00)
[2019-11-03] MEDS ORDERED: HYDROCODONE/APAP 5/325MG 1 EACH TABLET PO PRN (18:00)
[2019-11-03] MEDS ORDERED: MORPHINE SULFATE INJ 2 MG/ML DISP.SYRIN IV PRN (18:00)
[2019-11-03] MEDS ORDERED: MAGNESIUM HYDROXIDE 30 ML UDC PO PRN (18:00)
[2019-11-03] MEDS ORDERED: ACETAMINOPHEN 325 MG TABLET PO PRN (18:00)
[2019-11-03] MEDS ORDERED: ZOLPIDEM TARTRATE 5 MG TABLET PO PRN (18:00)
--- NOTE | 2019-11-03 19:00 | NUR ---
ms rn on bed, no distress noted,all needs attended.
[2019-11-03 19:30] VITALS: BP 131/73
--- NOTE | 2019-11-03 19:50 | NUR ---
MS RN NOTES PATIENT IN BED, AWAKE, ALERT AND ORIENTED X 4. BREATHING EVEN AND UNLABORED ON ROOM AIR. SHOWS NO SIGNS OF ACUTE RESPIRATORY DISTRESS, NO ACUTE PAIN. iv on R UPPER ARM PICC LINE RUNNING HEPARIN 1600. SHOWS NO SIGNS OF INFILTRATION, NO REDNESS. SAFETY PRECAUTIONS IN PLACE. BED IN LOWEST POSITION, LOCKED, AND CALL LIGHT KEPT WITHIN REACH. WILL CONTINUE TO MONITOR.
[2019-11-03 20:15] VITALS: BP 97/63
[2019-11-03 20:16] VITALS: BP 131/73
[2019-11-03] MEDS ORDERED: ERGOCALCIFEROL (VITAMIN D 2) 50,000 UNIT CAPSULE PO SCH (21:00)
[2019-11-03] MEDS ORDERED: BISACODYL (5 MG) 5 MG TABLET.DR PO PRN (21:00)
[2019-11-03] MEDS ORDERED: INSULIN ASPART SQ PRN (21:00)
[2019-11-03] MEDS ORDERED: DEXTROSE 50%-WATER 50 ML DISP.SYRIN IV PRN (21:30)
[2019-11-03] MEDS: DOCUSATE SODIUM 100 MG CAPSULE PO SCH (21:34)
[2019-11-03] MEDS: BLOOD SUGAR DIAGNOSTIC 1 EACH STRIP IN SCH (21:41)
[2019-11-03] MEDS ORDERED: INSULIN GLARGINE,BASAGLAR 100 UNIT/ML INSULN.PEN SQ SCH (22:00)
[2019-11-03] MEDS: INSULIN REGULAR, HUMAN 100 UNIT/ML 3 ML VIAL SQ PRN (22:17)
[2019-11-04] MEDS ORDERED: HEPARIN INFUSION/D5W 500 ML IV ONE (05:42)
[2019-11-04] MEDS: HEPARIN INFUSION/D5W 500 ML IV PRN ×2 (06:15→20:22)
[2019-11-04] MEDS: INSULIN REGULAR, HUMAN 100 UNIT/ML 3 ML VIAL SQ PRN ×4 (06:42→22:15)
[2019-11-04] MEDS: BLOOD SUGAR DIAGNOSTIC 1 EACH STRIP IN SCH ×4 (06:49→22:12)
--- NOTE | 2019-11-04 06:51 | NUR ---
MS RN NOTES PATIENT IN BED, ASLEEP, ALERT AND ORIENTED X 4. BREATHING EVEN AND UNLABORED ON ROOM AIR. SHOWS NO SIGNS OF ACUTE RESPIRATORY DISTRESS, NO ACUTE PAIN. IV on R UPPER ARM PICC LINE AND R WRIST 18G RUNNING HEPARIN 1600UNITS, 32ML/HR. SHOWS NO SIGNS OF INFILTRATION, NO REDNESS. SHOWS NO S/S OF BLEEDING. ALL DUE MEDICATIONS GIVEN. SAFETY PRECAUTIONS IN PLACE. BED IN LOWEST POSITION, LOCKED, AND CALL LIGHT KEPT WITHIN REACH. WILL ENDORSE TO ONCOMING NURSE.
--- NOTE | 2019-11-04 07:00 | NUR ---
MS RN NOTES PT IN BED, AWAKE, AO X 4. BREATHING EVEN AND UNLABORED ON ROOM AIR. PT SHOWS NO SIGNS OF ACUTE RESPIRATORY DISTRESS, NO ACUTE PAIN. R UPPER ARM PICC LINE INTACT AND PATENT. IV ON RIGHT WRIST # 18 INTACT, PATENT AND RUNNING HEPARIN 1600. SHOWS NO SIGNS OF INFILTRATION, NO REDNESS. SAFETY PRECAUTIONS IN PLACE. BED IN LOWEST POSITION, LOCKED, AND CALL LIGHT KEPT WITHIN REACH. WILL CONTINUE TO MONITOR.
[2019-11-04 08:00] VITALS: BP 144/77
[2019-11-04 08:01] LABS: BASOPHILS # (AUTO) 0.1 /CMM (0.0-0.2); BASOPHILS % (AUTO) 0.6 % (0.0-2.0); EOSINOPHILS % (AUTO) 3.4 % (0.0-6.0); HEMATOCRIT 39 % (33-45); HEMOGLOBIN 12.7 g/dL (11.5-14.8); LYMPHOCYTES # (AUTO) 4.1 /CMM (0.8-4.8); LYMPHOCYTES % (AUTO) 42.3 % (20.0-44.0); MEAN CORPUSCULAR HGB CONC 32 g/dl (31.0-36.0); MEAN CORPUSCULAR VOLUME 82 fL (82-100); MONOCYTES # (AUTO) 0.6 /CMM (0.1-1.30); MONOCYTES % (AUTO) 6.1 % (2.0-12.0); NEUTROPHILS # (AUTO) 4.6 /CMM (1.8-8.9); NEUTROPHILS % (AUTO) 47.6 % (43.0-81.0); PLATELET COUNT (AUTO) 173 /CMM (150-450); RED BLOOD CELL COUNT(AUTO) 4.82 MIL/uL (4.0-5.2); WHITE BLOOD COUNT (AUTO) 9.6 K/uL (4.3-11.0)
[2019-11-04] MEDS ORDERED: INSULIN GLARGINE, 100 UNIT/ML CARTRIDGE SQ SCH (08:07)
[2019-11-04 08:36] LABS: CALCIUM, SERUM 8.8 mg/dL (8.5-10.1); CREATININE 0.8 mg/dL (0.6-1.3); MAGNESIUM 2.1 mg/dL (1.8-2.4); PHOSPHORUS 4.1 mg/dL (2.5-4.9)
[2019-11-04 08:43] LABS: THYROID STIMULATING HORMONE 1.226 uIU/mL (0.358-3.74)
[2019-11-04] MEDS: ASPIRIN 81 MG TAB.CHEW PO SCH (08:53)
[2019-11-04] MEDS: DOCUSATE SODIUM 100 MG CAPSULE PO SCH ×2 (08:54→21:00)
[2019-11-04] MEDS: AMLODIPINE BESYLATE 10 MG TABLET PO SCH (08:54)
[2019-11-04] MEDS: MAGNESIUM OXIDE 400 MG TABLET PO SCH (08:54)
[2019-11-04] MEDS: TRAMADOL HCL 50 MG TABLET PO SCH (08:54)
[2019-11-04] MEDS: LOSARTAN POTASSIUM 50 MG TABLET PO SCH (08:55)
[2019-11-04] MEDS: POTASSIUM CHLORIDE 10 MEQ TABLET.SA PO SCH (08:55)
[2019-11-04] MEDS: FUROSEMIDE 20 MG TABLET PO SCH (08:55)
[2019-11-04] MEDS: HYDROCHLOROTHIAZIDE 25 MG TABLET PO SCH (08:56)
[2019-11-04] MEDS ORDERED: OMEGA COMBINATION NO 7 PO SCH (09:00)
[2019-11-04] MEDS ORDERED: Medication Not On Formulary EA (Omega-3 Fatty Acids/Fish Oil (Fish Oil 1,000 Mg Capsule) PO SCH (09:00)
[2019-11-04] MEDS ORDERED: DICLOFENAC TOPICAL 100 GM GEL..GM. TP SCH ×2 (09:00→17:00)
[2019-11-04] MEDS ORDERED: FEE PK DOSING 1 MIN EA MC ONE (11:27)
[2019-11-04] MEDS ORDERED: VANCOMYCIN 1.25 GM in IV NS 0.9% 250 ML IV ONE (13:00)
--- NOTE | 2019-11-04 13:00 | NUR ---
PT RECEIVED AFTER REPORT RECEIVED FROM MINE KIM. PT RESTING COMFORTABLY IN BED. NO S/S OR C/O PAIN OR DISTRESS NOTED SIDERAILS UP X2 CALL LIGHT LEFT WITHIN REACH. WILL CONTINUE PLAN OF CARE.
[2019-11-04] MEDS: CEFTRIAXONE 1 G in IV D5W 50 ML IV SCH (14:07)
[2019-11-04 16:00] VITALS: BP 109/56
[2019-11-04] MEDS: CADEXOMER IODINE 40 GM TUBE TP SCH (17:31)
[2019-11-04] MEDS: METFORMIN 500 MG TABLET PO SCH (17:37)
--- NOTE | 2019-11-04 18:35 | NUR ---
CHANGE OF SHIFT REPORT PT RESTING COMFORTABLY IN BED. NO S/S OR C/O PAIN OR DISTRESS NOTED. SIDE RAILS UP X2, CALL LIGHT LEFT WITHIN REACH. PT KEPT CLEAN, DRY, AND COMFORTABLE. NO SIGNIFICANT CHANGES SINCE PREVIOUS SHIFT. WILL GIVE TO REPORT TO RIA BLOUNT.
[2019-11-04 19:30] VITALS: BP 125/66
--- NOTE | 2019-11-04 19:42 | NUR ---
MS RN NOTES PATIENT IN BED, AWAKE, ALERT AND ORIENTED X 4. BREATHING EVEN AND UNLABORED ON ROOM AIR. SHOWS NO SIGNS OF ACUTE RESPIRATORY DISTRESS, NO ACUTE PAIN. IV ON R UPPER ARM PICC LINE AND R WRIST 18G RUNNING HEPARIN 32ML/HR. SHOWS NO SIGNS OF INFILTRATION, NO REDNESS. SAFETY PRECAUTIONS IN PLACE. BED IN LOWEST POSITION, LOCKED, AND CALL LIGHT KEPT WITHIN REACH. WILL CONTINUE TO MONITOR.
[2019-11-04 20:21] VITALS: BP 125/66
[2019-11-05] MEDS: VANCOMYCIN 1 GM in IV D5W 250 ML IV SCH ×2 (00:22→12:46)
[2019-11-05] MEDS: BLOOD SUGAR DIAGNOSTIC 1 EACH STRIP IN SCH ×2 (06:30→11:29)
[2019-11-05] MEDS: INSULIN REGULAR, HUMAN 100 UNIT/ML 3 ML VIAL SQ PRN ×2 (06:31→11:31)
--- NOTE | 2019-11-05 06:40 | NUR ---
MS RN NOTES PATIENT IN BED, ASLEEP, ALERT AND ORIENTED X 4. BREATHING EVEN AND UNLABORED ON ROOM AIR. SHOWS NO SIGNS OF ACUTE RESPIRATORY DISTRESS, NO ACUTE PAIN. IV ON R UPPER ARM PICC LINE RUNNING HEPARIN 32ML/HR. AND R WRIST IS CLEAN DRY AND INTACT. SHOWS NO SIGNS OF INFILTRATION, NO REDNESS. ALL DUE MEDICATIONS GIVEN. SAFETY PRECAUTIONS IN PLACE. BED IN LOWEST POSITION, LOCKED, AND CALL LIGHT KEPT WITHIN REACH. WILL ENDORSE TO ONCOMING NURSE
[2019-11-05 07:02] LABS: BASOPHILS % (AUTO) 0.7 % (0.0-2.0); EOSINOPHILS % (AUTO) 4.4 % (0.0-6.0); HEMATOCRIT 39 % (33-45); HEMOGLOBIN 12.7 g/dL (11.5-14.8); LYMPHOCYTES # (AUTO) 1.7 /CMM (0.8-4.8); LYMPHOCYTES % (AUTO) 23.2 % (20.0-44.0); MEAN CORPUSCULAR HGB CONC 33 g/dl (31.0-36.0); MEAN CORPUSCULAR VOLUME 81 fL (82-100); MONOCYTES # (AUTO) 0.5 /CMM (0.1-1.30); MONOCYTES % (AUTO) 7.2 % (2.0-12.0); NEUTROPHILS # (AUTO) 4.7 /CMM (1.8-8.9); NEUTROPHILS % (AUTO) 64.5 % (43.0-81.0); PLATELET COUNT (AUTO) 170 /CMM (150-450); RED BLOOD CELL COUNT(AUTO) 4.74 MIL/uL (4.0-5.2); WHITE BLOOD COUNT (AUTO) 7.2 K/uL (4.3-11.0)
[2019-11-05 07:11] LABS: CALCIUM, SERUM 8.9 mg/dL (8.5-10.1); CREATININE 0.8 mg/dL (0.6-1.3); PHOSPHORUS 4.4 mg/dL (2.5-4.9); POTASSIUM 3.8 mmol/L (3.5-5.1)
--- NOTE | 2019-11-05 07:15 | NUR ---
MS/RN - Assessment Patient is awake, A/O x 4, no complaints overnight, afebrile, stable on room air, saturating well, no SOB/respiratory distress, denies pain at this time. On heparin drip at 1600 units (32 ml/hr) for DVT on LUE, no active bleeding seen. Wound care on the LLE done as ordered. Labs reviewed, no critical results seen. Fall precautions maintained. Will continue with current medical management.
[2019-11-05 08:00] VITALS: BP 155/78
[2019-11-05] MEDS: METFORMIN 500 MG TABLET PO SCH (08:23)
[2019-11-05] MEDS: FUROSEMIDE 20 MG TABLET PO SCH (08:23)
[2019-11-05] MEDS: DOCUSATE SODIUM 100 MG CAPSULE PO SCH (08:23)
[2019-11-05] MEDS: POTASSIUM CHLORIDE 10 MEQ TABLET.SA PO SCH (08:23)
[2019-11-05] MEDS: HYDROCHLOROTHIAZIDE 25 MG TABLET PO SCH (08:23)
[2019-11-05] MEDS: ASPIRIN 81 MG TAB.CHEW PO SCH (08:23)
[2019-11-05] MEDS: MAGNESIUM OXIDE 400 MG TABLET PO SCH (08:23)
[2019-11-05] MEDS: TRAMADOL HCL 50 MG TABLET PO SCH (08:24)
[2019-11-05] MEDS: LOSARTAN POTASSIUM 50 MG TABLET PO SCH (08:24)
[2019-11-05] MEDS: AMLODIPINE BESYLATE 10 MG TABLET PO SCH (08:24)
[2019-11-05] MEDS: CADEXOMER IODINE 40 GM TUBE TP SCH (08:27)
[2019-11-05] MEDS ORDERED: LINAGLIPTIN 5 MG TABLET PO SCH (09:00)
--- NOTE | 2019-11-05 11:00 | NUR ---
MS/RN - Notes Discontinue heparin drip per Dr. Núñez, will start on Eliquis for home use. Possible discharge today.
[2019-11-05] MEDS: CEFTRIAXONE 1 G in IV D5W 50 ML IV SCH (11:32)
[2019-11-05] MEDS ORDERED: APIX5TAB4 PO (13:02)
[2019-11-05 16:00] VITALS: BP 135/76
--- NOTE | 2019-11-05 17:00 | NUR ---
MS/RN - Discharge Patient alert and oriented, discharged home with home health in stable condition, remain afebrile, denies pain, not in any form of distress, ambulatory with steady gait. Reviewed discharge instructions with patient and she verbalized understanding of all teachings including medications and follow-up care with PCP within [address] chest outpatient in 12 months and GI referral for EGD, discharge with ART PICC line to continue her 6 weeks of IV antibiotic course. Patient was advised to seek immediate medical attention for worsening symptoms, chest pain, shortness of breath, palpitations, abdominal pain/distention, intractable nausea and vomiting, diarrhea, hematochezia, melena, weakness, loss of consciousness, neurological deficit, or any other emergent concerns. All belongings with patient and she deny any missing items. Patient refused photos to be taken of skin. Saline lock removed on the right hand with catheter tip intact, no redness, no swelling noted at the site, ART PICC line double lumen flushing well, no signs of infiltration. Discharge paperwork signed and copies were given per protocol. Accompanied to the lobby via wheelchair and transported by private car by daughter Fer. Patient left the unit at 16:55.
[2019-11-07] MEDS ORDERED: ERGOCALCIFEROL (VITAMIN D 2) 50,000 UNIT CAPSULE PO SCH (09:00)
[2019-11-08 14:09] LABS: *CARD ANTI-CARDIOLIPIN AB IgG <9 GPL U/mL (0-14); *CARD ANTI-CARDIOLIPIN AB IgM <9 MPL U/mL (0-12)
[2019-11-09 10:07] LABS: *ANTITHROMBIN III AG 65 % (72-124); *DILUTE PROTHROMBIN TIME (dPT) 41.8 sec (0.0-55.0); *dPT CONFIRM RATIO 0.92 Ratio (0.00-1.40); *dRVVT 37.1 sec (0.0-47.0); PROTEIN C ACTIVITY 112 % (73-180)
[2019-11-11 13:06] LABS: *FACTOR II, DNA ANALYSIS Negative (.)
== END 2019-11-05 17:00 | disposition home health service (06) | DRG 300 ==
LOC: ER 11:19 → MED 14:57
PROVIDERS: ADMIT Student in an Organized Health Care Education/Training Program; ATTEND Student in an Organized Health Care Education/Training Program
PROC: 02HV33Z Insertion of Infusion Device into Superior Vena Cava, Percutaneous Approach (ICD-10-PCS; principal; 2019-11-03)
PROC: B548ZZA Ultrasonography of Superior Vena Cava, Guidance (ICD-10-PCS; 2019-11-03)
DX: I82.B12 Acute embolism and thrombosis of left subclavian vein (principal); L03.115 Cellulitis of right lower limb; D68.69 Other thrombophilia; M86.672 Other chronic osteomyelitis, left ankle and foot; E11.621 Type 2 diabetes mellitus with foot ulcer; Z79.4 Long term (current) use of insulin; E11.42 Type 2 diabetes mellitus with diabetic polyneuropathy; E11.51 Type 2 diabetes mellitus with diabetic peripheral angiopathy without gangrene; E66.9 Obesity, unspecified; F17.210 Nicotine dependence, cigarettes, uncomplicated; I10 Essential (primary) hypertension; I25.10 Atherosclerotic heart disease of native coronary artery without angina pectoris; Z79.82 Long term (current) use of aspirin; E11.69 Type 2 diabetes mellitus with other specified complication; L97.529 Non-pressure chronic ulcer of other part of left foot with unspecified severity; Z68.34 Body mass index [BMI] 34.0-34.9, adult; K20.9 Esophagitis, unspecified; I70.0 Atherosclerosis of aorta; I82.890 Acute embolism and thrombosis of other specified veins
CPT/HCPCS: 36415; 36569; 71250-TC; 80048-TC; 80061-TC; 81240; 81241; 82962-TC; 83090; 83735-TC; 84100-TC; 84443-TC; 85025-TC; 85300; 85301; 85303; 85610-TC; 85613; 85670; 85705; 85730-TC; 85732; 86147; 87081-TC; 93971-TC; C1751; G0378; J0696; J1642; J1644; J1815; J3370; J7030; J7050; J7060

== ENCOUNTER 2019-11-10 13:00 | Outpatient (CLI) | payer MEDICARE, OTHER ==
[~2019-11-10 13:00] MED LIST changes: +APIX5TAB4 PO; -CICL6.6S TP; -CIPR500T5 PO; -DOXY100C2 PO; -FLUC200T PO; -ONDA4TAB11 PO
== END 2019-11-10 23:59 | disposition home health service (06) ==
LOC: WOU 13:00
PROVIDERS: ATTEND Podiatrist Foot & Ankle Surgery
DX: E11.621 Type 2 diabetes mellitus with foot ulcer (principal); L97.522 Non-pressure chronic ulcer of other part of left foot with fat layer exposed; E11.42 Type 2 diabetes mellitus with diabetic polyneuropathy; E11.69 Type 2 diabetes mellitus with other specified complication; M86.672 Other chronic osteomyelitis, left ankle and foot; Z79.4 Long term (current) use of insulin; I10 Essential (primary) hypertension; F17.200 Nicotine dependence, unspecified, uncomplicated; Z89.422 Acquired absence of other left toe(s)
CPT/HCPCS: 11042

== ENCOUNTER 2019-11-17 13:45 | Outpatient (CLI) | payer MEDICARE, OTHER ==
[~2019-11-17 13:45] MED LIST changes: +CICL6.6S TP; +CIPR500T5 PO; +DOXY100C2 PO; +FLUC200T PO; +ONDA4TAB11 PO
== END 2019-11-17 23:59 | disposition home health service (06) ==
LOC: WOU 13:45
PROVIDERS: ATTEND Podiatrist Foot & Ankle Surgery
DX: E11.621 Type 2 diabetes mellitus with foot ulcer (principal); L97.522 Non-pressure chronic ulcer of other part of left foot with fat layer exposed; E11.42 Type 2 diabetes mellitus with diabetic polyneuropathy; E11.69 Type 2 diabetes mellitus with other specified complication; M86.672 Other chronic osteomyelitis, left ankle and foot; F17.200 Nicotine dependence, unspecified, uncomplicated; Z79.4 Long term (current) use of insulin; Z89.422 Acquired absence of other left toe(s)
CPT/HCPCS: 11042

== ENCOUNTER 2019-11-24 13:00 | Outpatient (CLI) | payer MEDICARE, OTHER ==
[~2019-11-24 13:00] MED LIST changes: -CICL6.6S TP; -CIPR500T5 PO; -DOXY100C2 PO; -FLUC200T PO; -ONDA4TAB11 PO
== END 2019-11-24 23:59 | disposition home health service (06) ==
LOC: WOU 13:00
PROVIDERS: ATTEND Podiatrist Foot & Ankle Surgery
DX: E11.621 Type 2 diabetes mellitus with foot ulcer (principal); L97.522 Non-pressure chronic ulcer of other part of left foot with fat layer exposed; E11.42 Type 2 diabetes mellitus with diabetic polyneuropathy; E11.69 Type 2 diabetes mellitus with other specified complication; M86.672 Other chronic osteomyelitis, left ankle and foot; Z79.4 Long term (current) use of insulin; Z89.422 Acquired absence of other left toe(s); F17.200 Nicotine dependence, unspecified, uncomplicated; I10 Essential (primary) hypertension
CPT/HCPCS: 11042

== ENCOUNTER 2019-12-01 12:45 | Outpatient (CLI) | payer MEDICARE, OTHER | END 2019-12-01 23:59 | disposition home health service (06) | LOC: WOU 12:45 | PROVIDERS: ATTEND Podiatrist Foot & Ankle Surgery | DX: E11.42 Type 2 diabetes mellitus with diabetic polyneuropathy (principal); E11.69 Type 2 diabetes mellitus with other specified complication; M86.672 Other chronic osteomyelitis, left ankle and foot; Z79.4 Long term (current) use of insulin; I10 Essential (primary) hypertension; F17.200 Nicotine dependence, unspecified, uncomplicated; Z89.422 Acquired absence of other left toe(s) | CPT/HCPCS: G0463 ==

== ENCOUNTER 2019-12-07 13:17 | Outpatient (CLI) | payer MEDICARE, OTHER | END 2019-12-07 23:59 | disposition home or self-care (01) | LOC: MRI 13:17 → EDSTATUS 12-08 10:24 | PROVIDERS: ATTEND Podiatrist Foot & Ankle Surgery | DX: M19.072 Primary osteoarthritis, left ankle and foot (principal); M20.12 Hallux valgus (acquired), left foot; M86.8X7 Other osteomyelitis, ankle and foot | CPT/HCPCS: 73718-TC ==

== ENCOUNTER 2019-12-15 13:05 | Outpatient (CLI) | payer MEDICARE, OTHER | END 2019-12-15 23:59 | disposition home health service (06) | LOC: WOU 13:05 | PROVIDERS: ATTEND Podiatrist Foot & Ankle Surgery | DX: E11.69 Type 2 diabetes mellitus with other specified complication (principal); M86.672 Other chronic osteomyelitis, left ankle and foot; E11.42 Type 2 diabetes mellitus with diabetic polyneuropathy; Z79.4 Long term (current) use of insulin; F17.200 Nicotine dependence, unspecified, uncomplicated; Z89.422 Acquired absence of other left toe(s) | CPT/HCPCS: G0463 ==

== ENCOUNTER 2019-12-29 13:15 | Outpatient (CLI) | payer MEDICARE, OTHER | END 2019-12-29 23:59 | disposition home health service (06) | LOC: WOU 13:15 | PROVIDERS: ATTEND Podiatrist Foot & Ankle Surgery | DX: E11.621 Type 2 diabetes mellitus with foot ulcer (principal); L97.522 Non-pressure chronic ulcer of other part of left foot with fat layer exposed; E11.42 Type 2 diabetes mellitus with diabetic polyneuropathy; E11.69 Type 2 diabetes mellitus with other specified complication; M86.672 Other chronic osteomyelitis, left ankle and foot; Z79.4 Long term (current) use of insulin; I10 Essential (primary) hypertension; F17.200 Nicotine dependence, unspecified, uncomplicated; Z89.422 Acquired absence of other left toe(s) | CPT/HCPCS: 11042 ==

== ENCOUNTER 2020-01-05 12:55 | Outpatient (CLI) | payer MEDICARE, OTHER | END 2020-01-05 23:59 | disposition home health service (06) | LOC: WOU 12:55 | PROVIDERS: ATTEND Podiatrist Foot & Ankle Surgery | DX: E11.621 Type 2 diabetes mellitus with foot ulcer (principal); L97.412 Non-pressure chronic ulcer of right heel and midfoot with fat layer exposed; L97.522 Non-pressure chronic ulcer of other part of left foot with fat layer exposed; E11.42 Type 2 diabetes mellitus with diabetic polyneuropathy; E11.69 Type 2 diabetes mellitus with other specified complication; M86.672 Other chronic osteomyelitis, left ankle and foot; Z79.4 Long term (current) use of insulin; I10 Essential (primary) hypertension; F17.200 Nicotine dependence, unspecified, uncomplicated; Z89.422 Acquired absence of other left toe(s) | CPT/HCPCS: 11042 ==

== ENCOUNTER 2020-01-29 13:25 | Outpatient (CLI) | payer MEDICARE, OTHER | END 2020-01-29 23:59 | disposition home health service (06) | LOC: WOU 13:25 | PROVIDERS: ATTEND Podiatrist Foot & Ankle Surgery | DX: E11.621 Type 2 diabetes mellitus with foot ulcer (principal); L97.522 Non-pressure chronic ulcer of other part of left foot with fat layer exposed; L97.512 Non-pressure chronic ulcer of other part of right foot with fat layer exposed; E11.42 Type 2 diabetes mellitus with diabetic polyneuropathy; E11.69 Type 2 diabetes mellitus with other specified complication; M86.672 Other chronic osteomyelitis, left ankle and foot; Z79.4 Long term (current) use of insulin; F17.200 Nicotine dependence, unspecified, uncomplicated; I10 Essential (primary) hypertension; Z89.422 Acquired absence of other left toe(s) | CPT/HCPCS: 11042 ==

== ENCOUNTER → 2020-02-04 | Outpatient (CLI) | payer MEDICARE, OTHER | END | disposition home or self-care (01) | LOC: RAD 12:32 | PROVIDERS: ATTEND Podiatrist Foot & Ankle Surgery | DX: M19.072 Primary osteoarthritis, left ankle and foot (principal); M79.89 Other specified soft tissue disorders; M77.32 Calcaneal spur, left foot; M86.8X7 Other osteomyelitis, ankle and foot; L97.529 Non-pressure chronic ulcer of other part of left foot with unspecified severity | CPT/HCPCS: 73630-TC ==

== ENCOUNTER 2020-02-05 13:55 | Outpatient (CLI) | payer MEDICARE, OTHER | END 2020-02-05 23:59 | disposition home health service (06) | LOC: WOU 13:55 | PROVIDERS: ATTEND Podiatrist Foot & Ankle Surgery | DX: E11.621 Type 2 diabetes mellitus with foot ulcer (principal); L97.522 Non-pressure chronic ulcer of other part of left foot with fat layer exposed; E11.42 Type 2 diabetes mellitus with diabetic polyneuropathy; E11.69 Type 2 diabetes mellitus with other specified complication; M86.672 Other chronic osteomyelitis, left ankle and foot; Z79.4 Long term (current) use of insulin; F17.200 Nicotine dependence, unspecified, uncomplicated; I10 Essential (primary) hypertension; Z89.422 Acquired absence of other left toe(s) | CPT/HCPCS: 11042 ==

== ENCOUNTER 2020-02-09 09:00 | Outpatient (CLI) | payer MEDICARE, OTHER ==
[2020-02-09 09:55] LABS: BASOPHILS % (AUTO) 0.3 % (0.0-2.0); EOSINOPHILS % (AUTO) 2.1 % (0.0-6.0); HEMATOCRIT 42 % (33-45); HEMOGLOBIN 14.1 g/dL (11.5-14.8); MEAN CORPUSCULAR HGB CONC 33 g/dl (31.0-36.0); MEAN CORPUSCULAR VOLUME 83 fL (82-100); MONOCYTES # (AUTO) 0.8 /CMM (0.1-1.30); MONOCYTES % (AUTO) 6.4 % (2.0-12.0); NEUTROPHILS # (AUTO) 7.5 /CMM (1.8-8.9); NEUTROPHILS % (AUTO) 59.2 % (43.0-81.0); PLATELET COUNT (AUTO) 261 /CMM (150-450); RED BLOOD CELL COUNT(AUTO) 5.05 MIL/uL (4.0-5.2); WHITE BLOOD COUNT (AUTO) 12.6 K/uL (4.3-11.0)
[2020-02-09 10:03] LABS: CALCIUM, SERUM 8.2 mg/dL (8.5-10.1); CREATININE 0.8 mg/dL (0.6-1.3); POTASSIUM 4.1 mmol/L (3.5-5.1)
[2020-02-09 10:09] LABS: C-REACTIVE PROTEIN 0.7 mg/dL (0.0-0.9); PREALBUMIN 28.6 MG/DL (18.0-35.7)
--- NOTE | 2020-02-09 10:47 | NUR ---
RT OUTPATIENT EKG PERFORMED ORDERED PER DR. WALKER.
== END 2020-02-09 23:59 | disposition home or self-care (01) ==
LOC: LAB 09:00
PROVIDERS: ATTEND Podiatrist Foot & Ankle Surgery
DX: Z01.818 Encounter for other preprocedural examination (principal); E11.621 Type 2 diabetes mellitus with foot ulcer; E11.42 Type 2 diabetes mellitus with diabetic polyneuropathy; I70.0 Atherosclerosis of aorta
CPT/HCPCS: 36415; 71045-TC; 80048-TC; 84134-TC; 85025-TC; 85652-TC; 85730-TC; 86140-TC

== ENCOUNTER 2020-02-12 13:10 | Outpatient (CLI) | payer MEDICARE, OTHER ==
[2020-02-12] MEDS ORDERED: LIDOCAINE SOLN 4% 50 ML BOTTLE ONE (13:46)
[2020-02-12] MEDS ORDERED: CADEXOMER IODINE UD 5 GM TUBE ONE (14:18)
== END 2020-02-12 23:59 | disposition home health service (06) ==
LOC: WOU 13:10
PROVIDERS: ATTEND Podiatrist Foot & Ankle Surgery
DX: E11.621 Type 2 diabetes mellitus with foot ulcer (principal); L97.522 Non-pressure chronic ulcer of other part of left foot with fat layer exposed; E11.42 Type 2 diabetes mellitus with diabetic polyneuropathy; E11.69 Type 2 diabetes mellitus with other specified complication; M86.672 Other chronic osteomyelitis, left ankle and foot; F17.200 Nicotine dependence, unspecified, uncomplicated; Z89.422 Acquired absence of other left toe(s); Z79.4 Long term (current) use of insulin
CPT/HCPCS: 11042; 87070-TC

== ENCOUNTER 2020-02-19 13:00 | Outpatient (CLI) | payer MEDICARE, OTHER ==
[2020-02-19] MEDS ORDERED: CADEXOMER IODINE UD 5 GM TUBE ONE (13:43)
== END 2020-02-19 23:59 | disposition home health service (06) ==
LOC: WOU 13:00
PROVIDERS: ATTEND Podiatrist Foot & Ankle Surgery
DX: E11.621 Type 2 diabetes mellitus with foot ulcer (principal); L97.522 Non-pressure chronic ulcer of other part of left foot with fat layer exposed; E11.42 Type 2 diabetes mellitus with diabetic polyneuropathy; E11.69 Type 2 diabetes mellitus with other specified complication; M86.672 Other chronic osteomyelitis, left ankle and foot; Z79.4 Long term (current) use of insulin; F17.200 Nicotine dependence, unspecified, uncomplicated; Z89.422 Acquired absence of other left toe(s)
CPT/HCPCS: 11042

== ENCOUNTER 2020-03-08 13:45 | Outpatient (CLI) | payer MEDICARE, OTHER | END 2020-03-08 23:59 | disposition home health service (06) | LOC: WOU 13:45 | PROVIDERS: ATTEND Podiatrist Foot & Ankle Surgery | DX: E11.621 Type 2 diabetes mellitus with foot ulcer (principal); L97.522 Non-pressure chronic ulcer of other part of left foot with fat layer exposed; E11.42 Type 2 diabetes mellitus with diabetic polyneuropathy; F17.200 Nicotine dependence, unspecified, uncomplicated; E11.69 Type 2 diabetes mellitus with other specified complication; M86.672 Other chronic osteomyelitis, left ankle and foot; Z79.4 Long term (current) use of insulin; Z89.422 Acquired absence of other left toe(s) | CPT/HCPCS: 11042 ==

== ENCOUNTER 2020-03-15 13:44 | Outpatient (CLI) | payer MEDICARE, OTHER | END 2020-03-15 23:59 | disposition home health service (06) | LOC: WOU 13:44 | PROVIDERS: ATTEND Podiatrist Foot & Ankle Surgery | DX: E11.621 Type 2 diabetes mellitus with foot ulcer (principal); L97.522 Non-pressure chronic ulcer of other part of left foot with fat layer exposed; E11.42 Type 2 diabetes mellitus with diabetic polyneuropathy; E11.69 Type 2 diabetes mellitus with other specified complication; M86.672 Other chronic osteomyelitis, left ankle and foot; F17.200 Nicotine dependence, unspecified, uncomplicated; Z89.422 Acquired absence of other left toe(s); Z79.4 Long term (current) use of insulin | CPT/HCPCS: 11042; 87070-TC; 87075-TC ==

== ENCOUNTER 2020-03-16 09:35 | Outpatient (CLI) | payer MEDICARE, OTHER ==
[2020-03-16 10:41] LABS: BASOPHILS % (AUTO) 0.3 % (0.0-2.0); EOSINOPHILS % (AUTO) 1.7 % (0.0-6.0); HEMATOCRIT 42 % (33-45); HEMOGLOBIN 13.8 g/dL (11.5-14.8); LYMPHOCYTES # (AUTO) 3.2 /CMM (0.8-4.8); LYMPHOCYTES % (AUTO) 23.7 % (20.0-44.0); MEAN CORPUSCULAR HGB CONC 33 g/dl (31.0-36.0); MEAN CORPUSCULAR VOLUME 85 fL (82-100); NEUTROPHILS # (AUTO) 9.2 /CMM (1.8-8.9); NEUTROPHILS % (AUTO) 67.3 % (43.0-81.0); PLATELET COUNT (AUTO) 262 /CMM (150-450); RED BLOOD CELL COUNT(AUTO) 4.96 MIL/uL (4.0-5.2); WHITE BLOOD COUNT (AUTO) 13.7 K/uL (4.3-11.0)
[2020-03-16 10:58] LABS: ALBUMIN 3.4 g/dL (3.4-5.0); BILIRUBIN,TOTAL 0.3 mg/dL (0.2-1.0); CREATININE 0.9 mg/dL (0.6-1.3); POTASSIUM 3.6 mmol/L (3.5-5.1); TOTAL PROTEIN, SERUM 7.5 g/dL (6.4-8.2)
== END 2020-03-16 23:59 | disposition home or self-care (01) ==
LOC: LAB 09:35
PROVIDERS: ATTEND Podiatrist Foot & Ankle Surgery
DX: Z01.818 Encounter for other preprocedural examination (principal); Z20.828 Contact with and (suspected) exposure to other viral communicable diseases; E11.621 Type 2 diabetes mellitus with foot ulcer; L97.529 Non-pressure chronic ulcer of other part of left foot with unspecified severity; R00.2 Palpitations
CPT/HCPCS: 36415; 80053; 83036; 85025; 85730; 93005; C9803; U0003

== ENCOUNTER 2020-03-17 13:42 | Outpatient (CLI) | payer MEDICARE, OTHER | END 2020-03-17 23:59 | disposition home or self-care (01) | LOC: CARD 13:42 | PROVIDERS: ATTEND Podiatrist Foot & Ankle Surgery | DX: I70.293 Other atherosclerosis of native arteries of extremities, bilateral legs (principal); I73.9 Peripheral vascular disease, unspecified ==

== ENCOUNTER 2020-03-21 05:02 | Inpatient (IN) | payer MEDICARE, OTHER ==
[~2020-03-21] VITALS: Ht 154.9 cm; Wt 93.0 kg
[2020-03-21] VITALS (10 sets, daily range): BP systolic 107–149; BP diastolic 57–85
--- NOTE | 2020-03-21 05:30 | NUR ---
MS/RN ADMITTING NOTES: PATIENT ARRIVED TO THE UNIT AT 0515 BY AMBULATING. SCHEDULED FOR DAY SURGERY LEFT FOOT WOUND DEBRIDEMENT, OSTEOTOMY AT 0730. A/OX4. VERBALLY RESPONSIVE AND ABLE TO MAKE NEEDS KNOWN. BREATHING EVEN AND UNLABORED. NO SOB NOTED. NO C/O PAIN AT THIS TIME. ALL CONSENTS SIGNED. PREOP CHECKLIST DONE. VS TAKEN, AND STABLE. IV STARTED ON THE LEFT HAND #20G INTACT AND PATENT, FLUSHING WELL. WOUND ASSESSED AND TAKEN PICTURE, PLACED IN CHART. PLACED MEPILEX FOR NOW. ORDERED WOUND CONSULT. SAFETY MEASURES INITIATED. BE DIN LOW, LOCKED POSITION WITH SR UPX2. CALL LIGHT WITHIN REACH. WILL CONTINUE TO MONITOR ACCORDINGLY.
[2020-03-21] MEDS ORDERED: BACITRACIN 50000 UNITS/VIAL ONE (07:05)
[2020-03-21] MEDS ORDERED: BUPIVACAINE 0.5 % PF 150 MG/30 ML VIAL ONE (07:05)
[2020-03-21] MEDS ORDERED: ANESTHESIA TRAY IN PYXIS 1 EA TRAY MC ONE (07:05)
--- NOTE | 2020-03-21 07:34 | NUR ---
MS/RN CLOSING NOTES: PATIENT TRANSFERRED TO OR AT 0705 VIA GURNEY.
--- NOTE | 2020-03-21 07:35 | NUR ---
RECEIVED REPORT FROM NETWORK PROJECT MANAGER NURSE. PATIENT LEFT TO OR VIA [facility] AT 0708.
[2020-03-21] MEDS ORDERED: MIDAZOLAM HCL 2 MG/2ML VIAL ONE (08:38)
[2020-03-21] MEDS ORDERED: FENTANYL PF 100MCG/2ML AMPUL ONE (08:39)
[2020-03-21] MEDS ORDERED: LIDOCAINE HCL/MPF 1% 30 ML VIAL IJ ONE (08:40)
[2020-03-21] MEDS ORDERED: SEVOFLURANE 250 ML BOTTLE IH ONE (09:23)
--- NOTE | 2020-03-21 11:15 | NUR ---
PATIENT RETURNED FROM OR VIA GURNEY GOT REPORT FROM OR NURSE SANTOS. PATIENT IS AWAKE A/O X 4 . WITH NO SIGNS OF DISTRESS AND NO SOB WITH 2 L OF NASAL CANNULA. NO COMPLAIN OF PAIN VITALS WITHIN NORMAL LIMIT. ORIENTED PATIENT TO HER ROOM. SAFETY MEASURES ARE APPLIED BED IS IN LOW AND LOCKED POSITION. SIDE RAILS UP X 2. CALL LIGHT WITHIN REACH. WILL CONTINUE TO MONITOR.
[2020-03-21] MEDS ORDERED: APIX5TAB PO (11:58)
--- NOTE | 2020-03-21 14:50 | NUR ---
DISCHARGE NOTES PATIENT IS A/O X 4 WITH NO SIGNS OF DISTRESS AND NO SOB. VITALS ARE WITHIN NORMAL LIMIT. DENIES ANY PAIN. DISCHARGE INSTRUCTIONS AND POST OP INSTRUCTIONS OF LEFT FOOT DEBRIDEMENT TO ELEVATE AND NON WEIGHT BEARING ON THE LEFT FOOT. A WALKER AND SURGICAL SHOES WERE PROVIDED FOR THE PATIENT TO TAKE HOME. PATIENT VERBALIZED UNDERSTANDING. IV L HAND AND L FA WERE REMOVED WERE REMOVED AND NO SIGNS OF BLEEDING AND COVERED. BELONGING LIST WAS COMPLETED AND SIGNED. PATIENT LEFT TO THE LOBBY VIA WHEELCHAIR WITH ASSISTANCE OF CLARISA Turner. FAMILY MEMBER PICKED PATIENT UP FROM HOSPITAL.
== END 2020-03-21 15:00 | disposition home health service (06) | DRG 624 ==
LOC: DS 05:02 → MED 05:03
PROVIDERS: ADMIT Student in an Organized Health Care Education/Training Program; ATTEND Student in an Organized Health Care Education/Training Program
PROC: 0HXNXZZ Transfer Left Foot Skin, External Approach (ICD-10-PCS; principal; 2020-03-21)
PROC: 0QBP0ZZ Excision of Left Metatarsal, Open Approach (ICD-10-PCS; 2020-03-21)
DX: E11.621 Type 2 diabetes mellitus with foot ulcer (principal); I10 Essential (primary) hypertension; F17.210 Nicotine dependence, cigarettes, uncomplicated; Z79.4 Long term (current) use of insulin; E11.42 Type 2 diabetes mellitus with diabetic polyneuropathy; L97.529 Non-pressure chronic ulcer of other part of left foot with unspecified severity
CPT/HCPCS: 73630-TC; 82962-TC; 87081-TC; 88305-TC; 97116-TC; 97530-TC; A6209; G0378; J2250; J3010; J3490

== ENCOUNTER 2020-03-29 13:00 | Outpatient (CLI) | payer MEDICARE, OTHER ==
[~2020-03-29 13:00] MED LIST changes: +APIX5TAB PO; -APIX5TAB4 PO; -DIPH25CA83 PO
== END 2020-03-29 23:59 | disposition home health service (06) ==
LOC: WOU 13:00
PROVIDERS: ATTEND Podiatrist Foot & Ankle Surgery
DX: E11.621 Type 2 diabetes mellitus with foot ulcer (principal); L97.528 Non-pressure chronic ulcer of other part of left foot with other specified severity; E11.42 Type 2 diabetes mellitus with diabetic polyneuropathy; E11.69 Type 2 diabetes mellitus with other specified complication; M86.672 Other chronic osteomyelitis, left ankle and foot; Z79.4 Long term (current) use of insulin; I10 Essential (primary) hypertension; F17.200 Nicotine dependence, unspecified, uncomplicated; Z89.422 Acquired absence of other left toe(s)
CPT/HCPCS: G0463

== ENCOUNTER 2020-04-15 13:00 | Outpatient (CLI) | payer MEDICARE, OTHER ==
[2020-04-15] MEDS ORDERED: CADEXOMER IODINE UD 5 GM TUBE ONE (13:52)
== END 2020-04-15 23:59 | disposition home health service (06) ==
LOC: WOU 13:00
PROVIDERS: ATTEND Podiatrist Foot & Ankle Surgery
DX: E11.621 Type 2 diabetes mellitus with foot ulcer (principal); L97.525 Non-pressure chronic ulcer of other part of left foot with muscle involvement without evidence of necrosis; L97.515 Non-pressure chronic ulcer of other part of right foot with muscle involvement without evidence of necrosis; E11.42 Type 2 diabetes mellitus with diabetic polyneuropathy; E11.69 Type 2 diabetes mellitus with other specified complication; M86.672 Other chronic osteomyelitis, left ankle and foot; Z79.4 Long term (current) use of insulin; I10 Essential (primary) hypertension; F17.200 Nicotine dependence, unspecified, uncomplicated; Z89.422 Acquired absence of other left toe(s)
CPT/HCPCS: 11043; 87070-TC; 87075-TC; 87186-TC

== ENCOUNTER 2020-04-22 13:00 | Outpatient (CLI) | payer MEDICARE, OTHER ==
[2020-04-22] MEDS ORDERED: CADEXOMER IODINE UD 5 GM TUBE ONE (13:22)
== END 2020-04-22 23:59 | disposition home health service (06) ==
LOC: WOU 13:00
PROVIDERS: ATTEND Podiatrist Foot & Ankle Surgery
DX: E11.621 Type 2 diabetes mellitus with foot ulcer (principal); L97.522 Non-pressure chronic ulcer of other part of left foot with fat layer exposed; L97.515 Non-pressure chronic ulcer of other part of right foot with muscle involvement without evidence of necrosis; L97.525 Non-pressure chronic ulcer of other part of left foot with muscle involvement without evidence of necrosis; E11.42 Type 2 diabetes mellitus with diabetic polyneuropathy; E11.69 Type 2 diabetes mellitus with other specified complication; M86.672 Other chronic osteomyelitis, left ankle and foot; F17.200 Nicotine dependence, unspecified, uncomplicated; Z89.422 Acquired absence of other left toe(s); Z79.4 Long term (current) use of insulin
CPT/HCPCS: 11042; 11043; 87070-TC

== ENCOUNTER 2020-04-29 13:00 | Outpatient (CLI) | payer MEDICARE, OTHER ==
[2020-04-29] MEDS ORDERED: CADEXOMER IODINE UD 5 GM TUBE ONE (13:52)
== END 2020-04-29 23:59 | disposition home health service (06) ==
LOC: WOU 13:00
PROVIDERS: ATTEND Podiatrist Foot & Ankle Surgery
DX: E11.621 Type 2 diabetes mellitus with foot ulcer (principal); L97.522 Non-pressure chronic ulcer of other part of left foot with fat layer exposed; L97.512 Non-pressure chronic ulcer of other part of right foot with fat layer exposed; E11.42 Type 2 diabetes mellitus with diabetic polyneuropathy; E11.69 Type 2 diabetes mellitus with other specified complication; M86.672 Other chronic osteomyelitis, left ankle and foot; Z79.4 Long term (current) use of insulin; I10 Essential (primary) hypertension; F17.200 Nicotine dependence, unspecified, uncomplicated; Z89.422 Acquired absence of other left toe(s)
CPT/HCPCS: 11042; 87070-TC; 87186-TC

== ENCOUNTER 2020-05-06 13:00 | Outpatient (CLI) | payer MEDICARE, OTHER | END 2020-05-06 23:59 | disposition home health service (06) | LOC: WOU 13:00 | PROVIDERS: ATTEND Podiatrist Foot & Ankle Surgery | DX: E11.621 Type 2 diabetes mellitus with foot ulcer (principal); L97.522 Non-pressure chronic ulcer of other part of left foot with fat layer exposed; L97.512 Non-pressure chronic ulcer of other part of right foot with fat layer exposed; E11.42 Type 2 diabetes mellitus with diabetic polyneuropathy; E11.69 Type 2 diabetes mellitus with other specified complication; M86.672 Other chronic osteomyelitis, left ankle and foot; Z79.4 Long term (current) use of insulin; F17.200 Nicotine dependence, unspecified, uncomplicated; Z89.422 Acquired absence of other left toe(s) | CPT/HCPCS: 11042 ==

== ENCOUNTER 2020-05-13 12:55 | Outpatient (CLI) | payer MEDICARE, OTHER ==
[~2020-05-13 12:55] MED LIST changes: +AMLO-213 PO; -AMLO10TA7 PO
[2020-05-13] MEDS ORDERED: CADEXOMER IODINE UD 5 GM TUBE ONE (13:56)
== END 2020-05-13 23:59 | disposition home health service (06) ==
LOC: WOU 12:55
PROVIDERS: ATTEND Podiatrist Foot & Ankle Surgery
DX: E11.621 Type 2 diabetes mellitus with foot ulcer (principal); L97.522 Non-pressure chronic ulcer of other part of left foot with fat layer exposed; L97.515 Non-pressure chronic ulcer of other part of right foot with muscle involvement without evidence of necrosis; E11.42 Type 2 diabetes mellitus with diabetic polyneuropathy; E11.69 Type 2 diabetes mellitus with other specified complication; M86.672 Other chronic osteomyelitis, left ankle and foot; Z79.4 Long term (current) use of insulin; I10 Essential (primary) hypertension; F17.200 Nicotine dependence, unspecified, uncomplicated; Z89.422 Acquired absence of other left toe(s)
CPT/HCPCS: 11042; 11043

== ENCOUNTER 2020-05-20 13:00 | Outpatient (CLI) | payer MEDICARE, OTHER ==
[2020-05-20] MEDS ORDERED: UREA 10% -AHA 4% CREAM 57 GM TUBE ONE (13:53)
[2020-05-20] MEDS ORDERED: CADEXOMER IODINE UD 5 GM TUBE ONE (13:53)
== END 2020-05-20 23:59 | disposition home health service (06) ==
LOC: WOU 13:00
PROVIDERS: ATTEND Podiatrist Foot & Ankle Surgery
DX: E11.621 Type 2 diabetes mellitus with foot ulcer (principal); L97.522 Non-pressure chronic ulcer of other part of left foot with fat layer exposed; L97.515 Non-pressure chronic ulcer of other part of right foot with muscle involvement without evidence of necrosis; E11.42 Type 2 diabetes mellitus with diabetic polyneuropathy; E11.69 Type 2 diabetes mellitus with other specified complication; M86.672 Other chronic osteomyelitis, left ankle and foot; Z79.4 Long term (current) use of insulin; F17.200 Nicotine dependence, unspecified, uncomplicated; Z89.422 Acquired absence of other left toe(s)
CPT/HCPCS: 11042

== ENCOUNTER 2020-05-27 13:20 | Outpatient (CLI) | payer MEDICARE, OTHER ==
[2020-05-27] MEDS ORDERED: CADEXOMER IODINE UD 5 GM TUBE ONE (13:47)
== END 2020-05-27 23:59 | disposition home health service (06) ==
LOC: WOU 13:20
PROVIDERS: ATTEND Podiatrist Foot & Ankle Surgery
DX: E11.621 Type 2 diabetes mellitus with foot ulcer (principal); L97.522 Non-pressure chronic ulcer of other part of left foot with fat layer exposed; L97.515 Non-pressure chronic ulcer of other part of right foot with muscle involvement without evidence of necrosis; E11.42 Type 2 diabetes mellitus with diabetic polyneuropathy; E11.69 Type 2 diabetes mellitus with other specified complication; M86.672 Other chronic osteomyelitis, left ankle and foot; Z79.4 Long term (current) use of insulin; F17.200 Nicotine dependence, unspecified, uncomplicated; Z89.422 Acquired absence of other left toe(s)
CPT/HCPCS: 11042; 11043

== ENCOUNTER 2020-07-12 13:00 | Outpatient (CLI) | payer MEDICARE, OTHER ==
[2020-07-12] MEDS ORDERED: DAKINS HALF STRENGTH (0.25%) 480 ML BOTTLE ONE (14:09)
[2020-07-14] MEDS ORDERED: VANC750F2 IV (09:32)
[2020-07-14] MEDS ORDERED: ERTA1VIA IV (09:32)
== END 2020-07-12 23:59 | disposition home or self-care (01) ==
LOC: WOU 13:00
PROVIDERS: ATTEND Podiatrist Foot & Ankle Surgery
DX: E11.621 Type 2 diabetes mellitus with foot ulcer (principal); L97.526 Non-pressure chronic ulcer of other part of left foot with bone involvement without evidence of necrosis; E11.42 Type 2 diabetes mellitus with diabetic polyneuropathy; E11.69 Type 2 diabetes mellitus with other specified complication; M86.672 Other chronic osteomyelitis, left ankle and foot; Z79.4 Long term (current) use of insulin; L03.116 Cellulitis of left lower limb; L02.612 Cutaneous abscess of left foot; F17.200 Nicotine dependence, unspecified, uncomplicated; Z89.422 Acquired absence of other left toe(s)
CPT/HCPCS: 11043

== ENCOUNTER 2020-07-12 15:37 | Inpatient (IN) | payer MEDICARE, OTHER ==
[~2020-07-12] VITALS: Ht 157.5 cm; Wt 63.5 kg
[2020-07-12] MEDS ORDERED: PIPERACILLIN /TAZOBACTAM 3.375 G in IV D5W 50 ML IV ONE (16:30)
[2020-07-12] MEDS ORDERED: VANCOMYCIN 1 GM in IV D5W 250 ML IV ONE (16:30)
[2020-07-12 16:48] LABS: BASOPHILS # (AUTO) 0.1 /CMM (0.0-0.2); BASOPHILS % (AUTO) 0.6 % (0.0-2.0); EOSINOPHILS % (AUTO) 2.1 % (0.0-6.0); HEMATOCRIT 39 % (33-45); HEMOGLOBIN 12.7 g/dL (11.5-14.8); LYMPHOCYTES # (AUTO) 2.9 /CMM (0.8-4.8); LYMPHOCYTES % (AUTO) 24.8 % (20.0-44.0); MEAN CORPUSCULAR HGB CONC 33 g/dl (31.0-36.0); MEAN CORPUSCULAR VOLUME 84 fL (82-100); MONOCYTES # (AUTO) 0.5 /CMM (0.1-1.30); NEUTROPHILS # (AUTO) 8.1 /CMM (1.8-8.9); NEUTROPHILS % (AUTO) 68.5 % (43.0-81.0); PLATELET COUNT (AUTO) 463 /CMM (150-450); RED BLOOD CELL COUNT(AUTO) 4.64 MIL/uL (4.0-5.2); WHITE BLOOD COUNT (AUTO) 11.9 K/uL (4.3-11.0)
[2020-07-12 16:57] LABS: CARBON DIOXIDE 25 mmol/L (21-32); CHLORIDE 102 mmol/L (98-107); CREATININE 1.1 mg/dL (0.6-1.3); GLUCOSE 201 mg/dL (74-106); POTASSIUM 4.2 mmol/L (3.5-5.1); SODIUM SERUM 137 mmol/L (136-145); UREA NITROGEN, BLOOD 12 mg/dL (7-18)
--- NOTE | 2020-07-12 17:01 | NUR ---
[facility] CALLED RED HAT ENGINEER PAGED.
--- NOTE | 2020-07-12 17:09 | NUR ---
BIBDAUGHTER FROM HOME TO ER BED 7. AAOX4. NOT IN RESP DISTRESS, BREATHING EVEN AND UNLABORED. AMBULATORY. SENT BY WOUND MD FOR ADMISSION D/T LEFT FOOT DEBRIDEMENT/I&D TOMORROW. WOUND IS ON THE LEFT FOOT WRAPPED WITH KERLIX WHICH WAS DONE BY THE WOUND CLININC. PT IS AFEBRILE. MD WAS AT THE BEDSIDE FOR EVAL. ORDERS RECEIVED, NOTED AND CARRIED OUT. IV LINE ESTABLISHED ON L AC 18G, BLOOD DRAWN AND GIVEN TO TESTER COMPRESSED GASES AT BEDSIDE.
[2020-07-12 17:12] LABS: ALANINE AMINOTRANSFERASE 39 U/L (12-78); ALBUMIN 2.9 g/dL (3.4-5.0); ALKALINE PHOSPHATASE 79 U/L (46-116); ASPARTATE AMINOTRANSFERASE 44 U/L (15-37); BILIRUBIN,DIRECT 0.1 mg/dL (0.0-0.2); BILIRUBIN,TOTAL 0.2 mg/dL (0.2-1.0); TOTAL PROTEIN, SERUM 8.5 g/dL (6.4-8.2)
[2020-07-12 17:25] LABS: BILIRUBIN,URINE Negative (NEGATIVE); COLOR,URINE YELLOW (YELLOW); LEUKOCYTE ESTERASE ,URINE Negative (NEGATIVE); NITRITE, URINE Negative (NEGATIVE); PH,URINE 5.5 (5.0-8.0); PROTEIN,URINE Negative (NEGATIVE); UGLUCOSE Negative (NEGATIVE); UROBILINOGEN,URINE 0.2 EU/dL (0.2)
[2020-07-12] MEDS ORDERED: MORPHINE SULFATE INJ 2 MG/ML DISP.SYRIN IV PRN (18:30)
[2020-07-12] MEDS ORDERED: HYDROCODONE/APAP 5/325MG TABLET PO PRN (18:30)
[2020-07-12] MEDS ORDERED: ZOLPIDEM TARTRATE 5 MG TABLET PO PRN (18:30)
[2020-07-12] MEDS ORDERED: ONDANSETRON HCL/PF 4 MG/2 ML VIAL IVP PRN (18:30)
[2020-07-12] MEDS ORDERED: MAG HYDROX/AL HYDROX/SIMETH 30 ML UDC PO PRN (18:30)
[2020-07-12] MEDS ORDERED: Z GUARD REMEDY 2 OZ OINT TP PRN (18:30)
[2020-07-12] MEDS ORDERED: IV NS 0.9% 1,000 ML IV PRN (18:30)
[2020-07-12] MEDS ORDERED: MAGNESIUM HYDROXIDE 30 ML UDC PO PRN (18:30)
[2020-07-12] MEDS ORDERED: ACETAMINOPHEN 325 MG TABLET PO PRN (18:30)
[2020-07-12] MEDS ORDERED: DEXTROSE 50%-WATER 50 ML DISP.SYRIN IV PRN (19:00)
[2020-07-12] MEDS ORDERED: *INSULIN REGULAR(HUMULIN R)HUM 100 UNIT/ML VIAL SQ PRN (19:00)
--- NOTE | 2020-07-12 20:13 | NUR ---
PT AMBULATED TO THE RESTROOM.
--- NOTE | 2020-07-12 20:14 | NUR ---
LACTIC 2.0
--- NOTE | 2020-07-12 20:20 | NUR ---
CALLED TO GIVE REPORT, WILL CALL BACK SOON.
--- NOTE | 2020-07-12 20:35 | NUR ---
REPORT GIVEN TO BRYAN BLOUNT FOR LEYLA
[2020-07-12] MEDS ORDERED: MEROPENEM 500 MG in IV NS 0.9% 50 ML IV SCH (21:00)
--- NOTE | 2020-07-12 22:40 | NUR ---
MS/TELE/RN RECEIVED PATIENT FROM E.R [facility]IA [facility], PATIENT IS AWAKE, ALERT, ORIENTED,, COMFORTABLE, NO DISTRESS NOTED, ADMISSION DONE PER PROTOCOL, TAUGHT THE USE OF CALL LIGHT PLACED AT BEDSIDE WITHIN REACH. WILL MONITOR.
[2020-07-12] MEDS: DOCUSATE SODIUM 100 MG CAPSULE PO SCH (23:35)
[2020-07-12] MEDS ORDERED: MEROPENEM 500 MG VIAL IV ONE (23:39)
[2020-07-12] MEDS: MEROPENEM 500 MG in IV NS 0.9% 50 ML IV SCH (23:49)
[2020-07-12] MEDS: BLOOD SUGAR DIAGNOSTIC 1 EACH STRIP VI SCH (23:50)
[2020-07-13] MEDS ORDERED: MEROPENEM 500 MG VIAL IV ONE (05:13)
[2020-07-13] MEDS: MEROPENEM 500 MG in IV NS 0.9% 50 ML IV SCH (05:22)
[2020-07-13 06:27] LABS: ALBUMIN 2.9 g/dL (3.4-5.0); BILIRUBIN,TOTAL 0.2 mg/dL (0.2-1.0); CALCIUM, SERUM 9.3 mg/dL (8.5-10.1); MAGNESIUM 2.4 mg/dL (1.8-2.4); PHOSPHORUS 4.3 mg/dL (2.5-4.9); POTASSIUM 4.2 mmol/L (3.5-5.1); TOTAL PROTEIN, SERUM 8.3 g/dL (6.4-8.2)
--- NOTE | 2020-07-13 07:05 | NUR ---
MS/TELE/RN NO CHANGE IN CONDITION, PICKED UP BY PENSION MANAGER.
[2020-07-13 07:18] LABS: BASOPHILS # (AUTO) 0.1 /CMM (0.0-0.2); BASOPHILS % (AUTO) 0.6 % (0.0-2.0); HEMATOCRIT 39 % (33-45); HEMOGLOBIN 12.7 g/dL (11.5-14.8); LYMPHOCYTES # (AUTO) 4.6 /CMM (0.8-4.8); LYMPHOCYTES % (AUTO) 39.8 % (20.0-44.0); MEAN CORPUSCULAR HGB CONC 33 g/dl (31.0-36.0); MEAN CORPUSCULAR VOLUME 83 fL (82-100); MONOCYTES # (AUTO) 0.8 /CMM (0.1-1.30); MONOCYTES % (AUTO) 6.7 % (2.0-12.0); NEUTROPHILS # (AUTO) 5.7 /CMM (1.8-8.9); NEUTROPHILS % (AUTO) 49.9 % (43.0-81.0); PLATELET COUNT (AUTO) 497 /CMM (150-450); RED BLOOD CELL COUNT(AUTO) 4.67 MIL/uL (4.0-5.2); WHITE BLOOD COUNT (AUTO) 11.5 K/uL (4.3-11.0)
[2020-07-13] MEDS ORDERED: ANESTHESIA TRAY IN PYXIS 1 EA TRAY MC ONE (07:19)
[2020-07-13] MEDS ORDERED: BUPIVACAINE 0.5 % PF 150 MG/30 ML VIAL ONE ×2 (07:20→08:00)
[2020-07-13] MEDS ORDERED: LIDOCAINE 1% INJ 50 ML MDV IJ ONE (07:20)
[2020-07-13] MEDS ORDERED: FENTANYL PF 100MCG/2ML AMPUL ONE (07:24)
[2020-07-13] MEDS ORDERED: BACITRACIN 50000 UNITS/VIAL ONE (07:36)
[2020-07-13] MEDS ORDERED: VANCOMYCIN 1 GM VIAL ONE (07:36)
[2020-07-13] MEDS ORDERED: VANCOMYCIN 0.75 GM in IV D5W 250 ML IV SCH (08:00)
[2020-07-13] MEDS ORDERED: MEROPENEM 1 G in IV NS 0.9% 100 ML IV SCH (09:00)
[2020-07-13] MEDS ORDERED: ERGOCALCIFEROL (VITAMIN D 2) 50,000 UNIT CAPSULE PO SCH (09:00)
[2020-07-13] MEDS ORDERED: DICLOFENAC TOPICAL 100 GM GEL..GM. TP SCH ×2 (09:00→17:00)
[2020-07-13] MEDS ORDERED: Medication Not On Formulary EA (Omega-3 Fatty Acids/Fish Oil (Fish Oil 1,000 Mg Capsule) PO SCH (09:00)
[2020-07-13] MEDS ORDERED: OMEGA COMBINATION NO 7 PO SCH (09:00)
--- NOTE | 2020-07-13 09:20 | NUR ---
RN MS NOTES RECEIVED PT FROM O.R. STAFF VIA BED, PT IS AWAKE, ALERT AND ORIENTED, NO COMPLAINT AT THIS TIME, DRESSING INTACT ON LEFT FOOT, POST OP ORDERS RECEIVED FROM DR. AARON MD ALSO ORDERED COVID19 TEST, KEPT PT WARM AND COMFORTABLE.
[2020-07-13 09:26] VITALS: BP 131/71
[2020-07-13] MEDS: BLOOD SUGAR DIAGNOSTIC 1 EACH STRIP VI SCH ×4 (11:19→21:31)
[2020-07-13] MEDS: LOSARTAN POTASSIUM 50 MG TABLET PO SCH (13:28)
[2020-07-13] MEDS: AMLODIPINE BESYLATE 10 MG TABLET PO SCH (13:29)
[2020-07-13] MEDS: HYDROCHLOROTHIAZIDE 25 MG TABLET PO SCH (13:29)
[2020-07-13] MEDS: TRAMADOL HCL 50 MG TABLET PO SCH (13:30)
[2020-07-13] MEDS: MAGNESIUM OXIDE 400 MG TABLET PO SCH (13:30)
[2020-07-13] MEDS: DOCUSATE SODIUM 100 MG CAPSULE PO SCH ×2 (13:30→21:31)
[2020-07-13] MEDS: ASPIRIN 81 MG TAB.CHEW PO SCH (13:30)
[2020-07-13] MEDS: APIXABAN 5 MG TABLET PO SCH ×2 (13:31→16:41)
[2020-07-13] MEDS: MEROPENEM 500 MG in IV NS 0.9% 100 ML IV SCH ×2 (13:43→21:12)
[2020-07-13] MEDS: INSULIN REGULAR, HUMAN 100 UNIT/ML 3 ML VIAL SQ PRN ×2 (14:11→18:16)
[2020-07-13] MEDS: VANCOMYCIN 0.75 GM in IV D5W 250 ML IV SCH (15:38)
[2020-07-13 16:00] VITALS: BP 112/93
--- NOTE | 2020-07-13 19:00 | NUR ---
RN MS NOTES PT IN BED, AWAKE, ALERT AND ORIENTED, NO COMPLAINT OF PAIN, NOT IN DISTRESS, SEEN BY PHYSICAL THERAPIST TODAY, DRESSING TO LEFT FOOT INTACT AND CLEAN, PT REFUSED COVID19 SWAB, PM MEDS GIVEN, ALL NEEDS ATTENDED.
[2020-07-13 20:00] VITALS: BP 133/67
--- NOTE | 2020-07-13 20:00 | NUR ---
MS ESTEBAN NOTES RECEIVED REPORT FROM AM NURSE ANNA AND SEEN PT IN BED AWAKE AND ALERT DOING SOMETHING ON HER I-PAD , DENIES ANY PAIN OR ANY DISCOMFORT. S/P LEFT FOOT EXCISIONAL DEBRIDEMENT TODAY BY DR WALKER , DRESSING DRY AND INTACT. . KEPT HER WARM AND COMFORTABLE AT ALL TIMES. PLACE CALL LIGHT AT REACH. WILL CONTINUE MONITORING.
[2020-07-13] MEDS ORDERED: INSULIN GLARGINE, 100 UNIT/ML CARTRIDGE SQ SCH (22:00)
--- NOTE | 2020-07-13 22:30 | NUR ---
MS ESTEBAN NOTES BLOOD SUGAR CHECKED DONE 257, 9 UNITS OF REGULAR INSULIN GIVEN ABIOLA SQ ORDERED. SNACKS ALSO SERVED. NO SIGNS OF HYPER GLYCEMIA NOTED. IVF STILL INFUSING. KEPT HER WARM AND COMFORTABLE AT ALL TIMES. PLACE CALL LIGHT AT REACH.
[2020-07-14] MEDS: VANCOMYCIN 0.75 GM in IV D5W 250 ML IV SCH (03:00)
[2020-07-14] MEDS: MEROPENEM 500 MG in IV NS 0.9% 100 ML IV SCH (04:45)
[2020-07-14] MEDS: BLOOD SUGAR DIAGNOSTIC 1 EACH STRIP VI SCH (05:37)
[2020-07-14] MEDS: INSULIN REGULAR, HUMAN 100 UNIT/ML 3 ML VIAL SQ PRN (05:39)
[2020-07-14 06:30] LABS: CALCIUM, SERUM 8.8 mg/dL (8.5-10.1); CREATININE 0.8 mg/dL (0.6-1.3); POTASSIUM 4.4 mmol/L (3.5-5.1)
--- NOTE | 2020-07-14 07:13 | NUR ---
ms lay midwife closing notes pt back to rest after taking blood sugar checked. blood sugar 140 , 2 units of insulin given as ordered. joanne SQ in different site. all due meds given . slept well and stable troughout the night. dressing on her left foot still dry and intact. pt able to ambulate without any discomfort noted. kept her warm and comfortable at all times. will endorse to am nurse for continuity of care. place call light at reach.
--- NOTE | 2020-07-14 07:34 | NUR ---
MS/RN OPENING NOTE RECEIVED PATIENT FROM PRESS HELPER NURSE PATIENT IS IN BED, AWAKE. A/O X3. PATIENT IN NO ACUTE DISTRESS AT THIS TIME. SAFETY MEASURES IN PLACE, CALL LIGHT WITHIN REACH, BED LOCKED AND IN LOWEST POSITION. WILL CONTINUE TO MONITOR AND ENSURE SAFETY.
[2020-07-14 08:00] VITALS: BP 149/75
[2020-07-14] MEDS ORDERED: DAKINS QUARTER STRENGTH (0.125%) 480 ML BOTTLE TOP SCH (09:00)
[2020-07-14] MEDS ORDERED: VANC750F2 IV (09:32)
[2020-07-14] MEDS ORDERED: ERTA1VIA IV (09:32)
[2020-07-14] MEDS: DOCUSATE SODIUM 100 MG CAPSULE PO SCH (10:18)
[2020-07-14] MEDS: ASPIRIN 81 MG TAB.CHEW PO SCH (10:18)
[2020-07-14] MEDS: HYDROCHLOROTHIAZIDE 25 MG TABLET PO SCH (10:18)
[2020-07-14] MEDS: LOSARTAN POTASSIUM 50 MG TABLET PO SCH (10:19)
[2020-07-14] MEDS: MAGNESIUM OXIDE 400 MG TABLET PO SCH (10:19)
[2020-07-14 10:20] VITALS: BP 149/75
[2020-07-14] MEDS: AMLODIPINE BESYLATE 10 MG TABLET PO SCH (10:20)
[2020-07-14] MEDS: APIXABAN 5 MG TABLET PO SCH (10:20)
[2020-07-14] MEDS: TRAMADOL HCL 50 MG TABLET PO SCH (10:22)
== END 2020-07-14 12:50 | disposition home health service (06) | DRG 622 ==
LOC: ER 15:40 → TRANSITION 18:51 → MED 20:08
PROVIDERS: ADMIT Nurse Practitioner Acute Care; ATTEND Nurse Practitioner Acute Care
PROC: 0Y9N0ZZ Drainage of Left Foot, Open Approach (ICD-10-PCS; principal; 2020-07-13)
PROC: 0QBR0ZX Excision of Left Toe Phalanx, Open Approach, Diagnostic (ICD-10-PCS; 2020-07-13)
PROC: 02HV33Z Insertion of Infusion Device into Superior Vena Cava, Percutaneous Approach (ICD-10-PCS; 2020-07-13)
PROC: 0KBW0ZZ Excision of Left Foot Muscle, Open Approach (ICD-10-PCS; 2020-07-13)
PROC: B548ZZA Ultrasonography of Superior Vena Cava, Guidance (ICD-10-PCS; 2020-07-13)
DX: E11.69 Type 2 diabetes mellitus with other specified complication (principal); E43 Unspecified severe protein-calorie malnutrition; L02.612 Cutaneous abscess of left foot; M86.8X7 Other osteomyelitis, ankle and foot; L03.116 Cellulitis of left lower limb; E11.621 Type 2 diabetes mellitus with foot ulcer; D72.829 Elevated white blood cell count, unspecified; I10 Essential (primary) hypertension; E78.5 Hyperlipidemia, unspecified; Z68.25 Body mass index [BMI] 25.0-25.9, adult; E11.42 Type 2 diabetes mellitus with diabetic polyneuropathy; F17.200 Nicotine dependence, unspecified, uncomplicated; E78.00 Pure hypercholesterolemia, unspecified; F17.210 Nicotine dependence, cigarettes, uncomplicated; E88.09 Other disorders of plasma-protein metabolism, not elsewhere classified; Z20.822 Contact with and (suspected) exposure to COVID-19; Z79.01 Long term (current) use of anticoagulants; Z79.4 Long term (current) use of insulin; Z79.82 Long term (current) use of aspirin; E11.51 Type 2 diabetes mellitus with diabetic peripheral angiopathy without gangrene; L97.529 Non-pressure chronic ulcer of other part of left foot with unspecified severity
CPT/HCPCS: 11043; 36415; 38221; 71045-TC; 73630-TC; 80048-TC; 80053-TC; 80061-TC; 80076-TC; 82962-TC; 83605-TC; 83735-TC; 84100-TC; 84484-TC; 85025-TC; 85652-TC; 85730-TC; 86140-TC; 87040-TC; 87070-TC; 87081-TC; 87086-TC; 87186-TC; 88305-TC; 88311-TC; 88312-TC; 97116-TC; 97530-TC; A4217; A6253; A6403; A6407; C1751; G0378; J1815; J2185; J2543; J2704; J3010; J3370; J3490; J7030; J7060

== ENCOUNTER 2020-07-19 13:10 | Outpatient (CLI) | payer MEDICARE, OTHER ==
[~2020-07-19 13:10] MED LIST changes: +ERTA1VIA IV; +VANC750F2 IV
== END 2020-07-19 23:59 | disposition home or self-care (01) ==
LOC: WOU 13:10
PROVIDERS: ATTEND Podiatrist Foot & Ankle Surgery
DX: E11.621 Type 2 diabetes mellitus with foot ulcer (principal); L97.526 Non-pressure chronic ulcer of other part of left foot with bone involvement without evidence of necrosis; E11.42 Type 2 diabetes mellitus with diabetic polyneuropathy; E11.69 Type 2 diabetes mellitus with other specified complication; M86.672 Other chronic osteomyelitis, left ankle and foot; Z79.4 Long term (current) use of insulin; L03.116 Cellulitis of left lower limb; F17.200 Nicotine dependence, unspecified, uncomplicated; Z89.422 Acquired absence of other left toe(s)
CPT/HCPCS: 11043; A6407

== ENCOUNTER 2020-07-26 13:25 | Outpatient (CLI) | payer MEDICARE, OTHER ==
[2020-07-26] MEDS ORDERED: CADEXOMER IODINE UD 5 GM TUBE ONE (14:05)
== END 2020-07-26 23:59 | disposition home health service (06) ==
LOC: WOU 13:25
PROVIDERS: ATTEND Podiatrist Foot & Ankle Surgery
DX: E11.621 Type 2 diabetes mellitus with foot ulcer (principal); L97.526 Non-pressure chronic ulcer of other part of left foot with bone involvement without evidence of necrosis; E11.42 Type 2 diabetes mellitus with diabetic polyneuropathy; E11.69 Type 2 diabetes mellitus with other specified complication; M86.672 Other chronic osteomyelitis, left ankle and foot; Z79.4 Long term (current) use of insulin; L03.116 Cellulitis of left lower limb; F17.200 Nicotine dependence, unspecified, uncomplicated; Z89.422 Acquired absence of other left toe(s)
CPT/HCPCS: 11043; 87070-TC

== ENCOUNTER 2020-08-02 13:20 | Outpatient (CLI) | payer MEDICARE, OTHER | END 2020-08-02 23:59 | disposition home health service (06) | LOC: WOU 13:20 | PROVIDERS: ATTEND Podiatrist Foot & Ankle Surgery | DX: E11.621 Type 2 diabetes mellitus with foot ulcer (principal); L97.526 Non-pressure chronic ulcer of other part of left foot with bone involvement without evidence of necrosis; E11.42 Type 2 diabetes mellitus with diabetic polyneuropathy; E11.69 Type 2 diabetes mellitus with other specified complication; M86.672 Other chronic osteomyelitis, left ankle and foot; Z79.4 Long term (current) use of insulin; F17.200 Nicotine dependence, unspecified, uncomplicated; Z89.422 Acquired absence of other left toe(s); I10 Essential (primary) hypertension ==

== ENCOUNTER 2020-08-03 10:45 | Outpatient (CLI) | payer MEDICARE, OTHER | END 2020-08-03 23:59 | disposition home or self-care (01) | LOC: VASLAB 10:45 | PROVIDERS: ATTEND Internal Medicine | DX: E11.621 Type 2 diabetes mellitus with foot ulcer (principal); L97.529 Non-pressure chronic ulcer of other part of left foot with unspecified severity; E11.69 Type 2 diabetes mellitus with other specified complication; M86.8X7 Other osteomyelitis, ankle and foot; E11.51 Type 2 diabetes mellitus with diabetic peripheral angiopathy without gangrene; I10 Essential (primary) hypertension; E78.5 Hyperlipidemia, unspecified | CPT/HCPCS: G0463 ==

== ENCOUNTER 2020-08-09 13:15 | Outpatient (CLI) | payer MEDICARE, OTHER | END 2020-08-09 23:59 | disposition home health service (06) | LOC: WOU 13:15 | PROVIDERS: ATTEND Podiatrist Foot & Ankle Surgery | DX: E11.621 Type 2 diabetes mellitus with foot ulcer (principal); L97.529 Non-pressure chronic ulcer of other part of left foot with unspecified severity; E11.42 Type 2 diabetes mellitus with diabetic polyneuropathy; Z79.4 Long term (current) use of insulin; F17.200 Nicotine dependence, unspecified, uncomplicated; Z89.422 Acquired absence of other left toe(s) | CPT/HCPCS: G0463 ==

== ENCOUNTER 2020-08-16 13:35 | Outpatient (CLI) | payer MEDICARE, OTHER ==
[2020-08-16] MEDS ORDERED: CADEXOMER IODINE UD 5 GM TUBE ONE (14:37)
== END 2020-08-16 23:59 | disposition home health service (06) ==
LOC: WOU 13:35
PROVIDERS: ATTEND Podiatrist Foot & Ankle Surgery
DX: E11.621 Type 2 diabetes mellitus with foot ulcer (principal); L97.529 Non-pressure chronic ulcer of other part of left foot with unspecified severity; E11.42 Type 2 diabetes mellitus with diabetic polyneuropathy; Z79.4 Long term (current) use of insulin; F17.200 Nicotine dependence, unspecified, uncomplicated; Z89.422 Acquired absence of other left toe(s)
CPT/HCPCS: G0463

== ENCOUNTER 2020-08-23 13:40 | Outpatient (CLI) | payer MEDICARE, OTHER ==
[2020-08-23] MEDS ORDERED: CADEXOMER IODINE UD 5 GM TUBE ONE (14:43)
== END 2020-08-23 23:59 | disposition home health service (06) ==
LOC: WOU 13:40
PROVIDERS: ATTEND Podiatrist Foot & Ankle Surgery
DX: T81.31XA Disruption of external operation (surgical) wound, not elsewhere classified, initial encounter (principal); E11.621 Type 2 diabetes mellitus with foot ulcer; L97.522 Non-pressure chronic ulcer of other part of left foot with fat layer exposed; E11.42 Type 2 diabetes mellitus with diabetic polyneuropathy; E11.69 Type 2 diabetes mellitus with other specified complication; M86.672 Other chronic osteomyelitis, left ankle and foot; Z79.4 Long term (current) use of insulin; F17.200 Nicotine dependence, unspecified, uncomplicated
CPT/HCPCS: 11042

== ENCOUNTER 2020-08-30 14:10 | Outpatient (CLI) | payer MEDICARE, OTHER ==
[2020-08-30] MEDS ORDERED: CADEXOMER IODINE UD 5 GM TUBE ONE (14:58)
== END 2020-08-30 23:59 | disposition home health service (06) ==
LOC: WOU 14:10
PROVIDERS: ATTEND Podiatrist Foot & Ankle Surgery
DX: E11.621 Type 2 diabetes mellitus with foot ulcer (principal); L97.522 Non-pressure chronic ulcer of other part of left foot with fat layer exposed; E11.42 Type 2 diabetes mellitus with diabetic polyneuropathy; E11.51 Type 2 diabetes mellitus with diabetic peripheral angiopathy without gangrene; Z79.4 Long term (current) use of insulin; F17.200 Nicotine dependence, unspecified, uncomplicated; Z89.422 Acquired absence of other left toe(s)
CPT/HCPCS: 11042

== ENCOUNTER 2020-09-06 14:00 | Outpatient (CLI) | payer MEDICARE, OTHER ==
[2020-09-06] MEDS ORDERED: BACITRACIN ZINC OINT PACKET 1 EA PACKET TP ONE (14:33)
== END 2020-09-06 23:59 | disposition home health service (06) ==
LOC: WOU 14:00
PROVIDERS: ATTEND Podiatrist Foot & Ankle Surgery
DX: E11.621 Type 2 diabetes mellitus with foot ulcer (principal); L97.522 Non-pressure chronic ulcer of other part of left foot with fat layer exposed; E11.42 Type 2 diabetes mellitus with diabetic polyneuropathy; E11.51 Type 2 diabetes mellitus with diabetic peripheral angiopathy without gangrene; F17.200 Nicotine dependence, unspecified, uncomplicated; Z89.422 Acquired absence of other left toe(s); Z79.4 Long term (current) use of insulin; I10 Essential (primary) hypertension
CPT/HCPCS: 11042

== ENCOUNTER 2020-09-13 13:25 | Outpatient (CLI) | payer MEDICARE, OTHER | END 2020-09-13 23:59 | disposition home health service (06) | LOC: WOU 13:25 | PROVIDERS: ATTEND Podiatrist Foot & Ankle Surgery | DX: E11.621 Type 2 diabetes mellitus with foot ulcer (principal); L97.522 Non-pressure chronic ulcer of other part of left foot with fat layer exposed; E11.42 Type 2 diabetes mellitus with diabetic polyneuropathy; F17.200 Nicotine dependence, unspecified, uncomplicated; Z89.422 Acquired absence of other left toe(s); I10 Essential (primary) hypertension; Z79.4 Long term (current) use of insulin | CPT/HCPCS: 11042; 87070; 87075; 87077; 87186; A6407 ==

== ENCOUNTER 2020-09-20 13:30 | Outpatient (CLI) | payer MEDICARE, OTHER ==
[2020-09-20] MEDS ORDERED: MUPIROCIN 2% CREAM 15 GM TUBE TP ONE (14:10)
== END 2020-09-20 23:59 | disposition home health service (06) ==
LOC: WOU 13:30
PROVIDERS: ATTEND Podiatrist Foot & Ankle Surgery
DX: E11.621 Type 2 diabetes mellitus with foot ulcer (principal); L97.525 Non-pressure chronic ulcer of other part of left foot with muscle involvement without evidence of necrosis; E11.42 Type 2 diabetes mellitus with diabetic polyneuropathy; F17.200 Nicotine dependence, unspecified, uncomplicated; Z89.422 Acquired absence of other left toe(s); Z79.4 Long term (current) use of insulin
CPT/HCPCS: 11042; 11043

== ENCOUNTER → 2020-09-27 | Outpatient (CLI) | payer MEDICARE, OTHER ==
[~2020-09-27] MED LIST changes: +GENTAMICIN 0.1% CREAM 15 GM TUBE ONE
== END | disposition home health service (06) ==
LOC: WOU 13:25
PROVIDERS: ATTEND Podiatrist Foot & Ankle Surgery
DX: E11.621 Type 2 diabetes mellitus with foot ulcer (principal); L97.525 Non-pressure chronic ulcer of other part of left foot with muscle involvement without evidence of necrosis; E11.42 Type 2 diabetes mellitus with diabetic polyneuropathy; F17.200 Nicotine dependence, unspecified, uncomplicated; E11.51 Type 2 diabetes mellitus with diabetic peripheral angiopathy without gangrene; I10 Essential (primary) hypertension; Z89.422 Acquired absence of other left toe(s); Z79.4 Long term (current) use of insulin
CPT/HCPCS: 11043

== ENCOUNTER 2020-09-28 09:30 | Outpatient (CLI) | payer MEDICARE, OTHER ==
[~2020-09-28 09:30] MED LIST changes: -GENTAMICIN 0.1% CREAM 15 GM TUBE ONE
== END 2020-09-28 23:59 | disposition home or self-care (01) ==
LOC: VASLAB 09:30
PROVIDERS: ATTEND Internal Medicine
DX: E11.621 Type 2 diabetes mellitus with foot ulcer (principal); L97.529 Non-pressure chronic ulcer of other part of left foot with unspecified severity; E11.51 Type 2 diabetes mellitus with diabetic peripheral angiopathy without gangrene; E11.69 Type 2 diabetes mellitus with other specified complication; M86.8X7 Other osteomyelitis, ankle and foot; Z79.4 Long term (current) use of insulin; E78.5 Hyperlipidemia, unspecified; I10 Essential (primary) hypertension
CPT/HCPCS: G0463

== ENCOUNTER 2020-10-04 13:25 | Outpatient (CLI) | payer MEDICARE, OTHER ==
[2020-10-04] MEDS ORDERED: GENTAMICIN 0.1% CREAM 15 GM TUBE ONE (14:27)
[2020-10-04 15:06] LABS: BASOPHILS % (AUTO) 0.4 % (0.0-2.0); EOSINOPHILS % (AUTO) 1.5 % (0.0-6.0); HEMATOCRIT 41 % (33-45); HEMOGLOBIN 13.5 g/dL (11.5-14.8); LYMPHOCYTES % (AUTO) 25.6 % (20.0-44.0); MEAN CORPUSCULAR HGB CONC 33 g/dl (31.0-36.0); MEAN CORPUSCULAR VOLUME 82 fL (82-100); MONOCYTES # (AUTO) 0.7 /CMM (0.1-1.30); MONOCYTES % (AUTO) 5.9 % (2.0-12.0); NEUTROPHILS # (AUTO) 7.7 /CMM (1.8-8.9); NEUTROPHILS % (AUTO) 66.6 % (43.0-81.0); PLATELET COUNT (AUTO) 266 /CMM (150-450); WHITE BLOOD COUNT (AUTO) 11.6 K/uL (4.3-11.0)
[2020-10-04 15:17] LABS: C-REACTIVE PROTEIN 0.5 mg/dL (0.0-0.9); CALCIUM, SERUM 9.1 mg/dL (8.5-10.1); CREATININE 0.9 mg/dL (0.6-1.3); POTASSIUM 3.8 mmol/L (3.5-5.1)
== END 2020-10-04 23:59 | disposition home health service (06) ==
LOC: WOU 13:25
PROVIDERS: ATTEND Podiatrist Foot & Ankle Surgery
DX: E11.621 Type 2 diabetes mellitus with foot ulcer (principal); L97.525 Non-pressure chronic ulcer of other part of left foot with muscle involvement without evidence of necrosis; E11.69 Type 2 diabetes mellitus with other specified complication; M86.8X7 Other osteomyelitis, ankle and foot; Z79.4 Long term (current) use of insulin
CPT/HCPCS: 11043; 36415; 73630-TC; 80048-TC; 82040-TC; 85025-TC; 85652-TC; 86140-TC

== ENCOUNTER 2020-10-11 13:30 | Outpatient (CLI) | payer MEDICARE, OTHER ==
[2020-10-11] MEDS ORDERED: CADEXOMER IODINE UD 5 GM TUBE ONE (14:43)
== END 2020-10-11 23:59 | disposition home health service (06) ==
LOC: WOU 13:30
PROVIDERS: ATTEND Podiatrist Foot & Ankle Surgery
DX: E11.621 Type 2 diabetes mellitus with foot ulcer (principal); L97.525 Non-pressure chronic ulcer of other part of left foot with muscle involvement without evidence of necrosis; E11.42 Type 2 diabetes mellitus with diabetic polyneuropathy; E11.51 Type 2 diabetes mellitus with diabetic peripheral angiopathy without gangrene; Z79.4 Long term (current) use of insulin; F17.200 Nicotine dependence, unspecified, uncomplicated; Z89.422 Acquired absence of other left toe(s)
CPT/HCPCS: 11042

== ENCOUNTER 2020-10-13 12:00 | Outpatient (CLI) | payer MEDICARE, OTHER | END 2020-10-13 23:59 | disposition home or self-care (01) | LOC: MRI 12:00 | PROVIDERS: ATTEND Podiatrist Foot & Ankle Surgery | DX: E11.621 Type 2 diabetes mellitus with foot ulcer (principal); M86.8X7 Other osteomyelitis, ankle and foot; L03.116 Cellulitis of left lower limb | CPT/HCPCS: 73718-TC ==

== ENCOUNTER 2020-10-18 13:30 | Outpatient (CLI) | payer MEDICARE, OTHER ==
[2020-10-18] MEDS ORDERED: GENTAMICIN 0.1% CREAM 15 GM TUBE ONE (14:11)
== END 2020-10-18 23:59 | disposition home health service (06) ==
LOC: WOU 13:30
PROVIDERS: ATTEND Podiatrist Foot & Ankle Surgery
DX: E11.621 Type 2 diabetes mellitus with foot ulcer (principal); L97.525 Non-pressure chronic ulcer of other part of left foot with muscle involvement without evidence of necrosis; E11.51 Type 2 diabetes mellitus with diabetic peripheral angiopathy without gangrene; E11.42 Type 2 diabetes mellitus with diabetic polyneuropathy; E11.69 Type 2 diabetes mellitus with other specified complication; M86.672 Other chronic osteomyelitis, left ankle and foot; Z79.4 Long term (current) use of insulin; F17.200 Nicotine dependence, unspecified, uncomplicated; Z89.422 Acquired absence of other left toe(s)
CPT/HCPCS: 11042

== ENCOUNTER 2020-10-20 09:06 | Outpatient (CLI) | payer MEDICARE, OTHER ==
[2020-10-20 11:25] LABS: URINE TOTAL PROTEIN 16.3 mg/dL (0-11.9)
[2020-10-20 11:36] LABS: FREE T4 (FREE THYROXINE) 1.14 ng/dL (0.76-1.46); THYROID STIMULATING HORMONE 1.792 uIU/mL (0.358-3.74)
[2020-10-20 11:49] LABS: BILIRUBIN,URINE NEGATIVE (NEGATIVE); COLOR,URINE YELLOW (YELLOW); LEUKOCYTE ESTERASE ,URINE NEGATIVE (NEGATIVE); NITRITE, URINE NEGATIVE (NEGATIVE); PH,URINE 5.5 (5.0-8.0); PROTEIN,URINE NEGATIVE (NEGATIVE); UGLUCOSE NEGATIVE (NEGATIVE); UROBILINOGEN,URINE 0.2 EU/dL (0.2)
[2020-10-20 11:52] LABS: PHOSPHORUS 3.7 mg/dL (2.5-4.9)
== END 2020-10-20 23:59 | disposition home or self-care (01) ==
LOC: MSC 09:06
PROVIDERS: ATTEND Internal Medicine
DX: M54.5 Low back pain (principal); E11.65 Type 2 diabetes mellitus with hyperglycemia; Z79.4 Long term (current) use of insulin; I10 Essential (primary) hypertension; E78.5 Hyperlipidemia, unspecified; I73.9 Peripheral vascular disease, unspecified; Z89.422 Acquired absence of other left toe(s); E66.9 Obesity, unspecified; Z68.36 Body mass index [BMI] 36.0-36.9, adult; Z79.899 Other long term (current) drug therapy
CPT/HCPCS: 36415; 72110; 80061; 81003; 82043; 82306; 82570; 82607; 82746; 84100; 84155; 84439; 84443; G0463

== ENCOUNTER 2020-10-25 13:00 | Outpatient (CLI) | payer MEDICARE, OTHER ==
[2020-10-25] MEDS ORDERED: CADEXOMER IODINE UD 5 GM TUBE ONE (13:45)
== END 2020-10-25 23:59 | disposition home health service (06) ==
LOC: WOU 13:00
PROVIDERS: ATTEND Podiatrist Foot & Ankle Surgery
DX: E11.621 Type 2 diabetes mellitus with foot ulcer (principal); L97.522 Non-pressure chronic ulcer of other part of left foot with fat layer exposed; E11.42 Type 2 diabetes mellitus with diabetic polyneuropathy; Z79.4 Long term (current) use of insulin; F17.200 Nicotine dependence, unspecified, uncomplicated; I10 Essential (primary) hypertension; Z89.422 Acquired absence of other left toe(s)
CPT/HCPCS: 11042; A6209

== ENCOUNTER 2020-10-26 09:30 | Outpatient (CLI) | payer MEDICARE, OTHER | END 2020-10-26 23:59 | disposition home or self-care (01) | LOC: VASLAB 09:30 | PROVIDERS: ATTEND Internal Medicine | DX: E11.621 Type 2 diabetes mellitus with foot ulcer (principal); L97.529 Non-pressure chronic ulcer of other part of left foot with unspecified severity; E11.69 Type 2 diabetes mellitus with other specified complication; M86.8X7 Other osteomyelitis, ankle and foot; E11.51 Type 2 diabetes mellitus with diabetic peripheral angiopathy without gangrene; I10 Essential (primary) hypertension; E78.5 Hyperlipidemia, unspecified | CPT/HCPCS: G0463 ==

== ENCOUNTER 2020-10-27 11:00 | Outpatient (CLI) | payer MEDICARE, OTHER | END 2020-10-27 23:59 | disposition home or self-care (01) | LOC: MSC 11:00 | PROVIDERS: ATTEND Internal Medicine | DX: M54.5 Low back pain (principal); E11.65 Type 2 diabetes mellitus with hyperglycemia; Z79.4 Long term (current) use of insulin; I10 Essential (primary) hypertension; E78.5 Hyperlipidemia, unspecified; I73.9 Peripheral vascular disease, unspecified; E66.9 Obesity, unspecified; Z79.899 Other long term (current) drug therapy ==

== ENCOUNTER 2020-11-01 13:45 | Outpatient (CLI) | payer MEDICARE, OTHER | END 2020-11-01 23:59 | disposition home health service (06) | LOC: WOU 13:45 | PROVIDERS: ATTEND Podiatrist Foot & Ankle Surgery | DX: E11.621 Type 2 diabetes mellitus with foot ulcer (principal); L97.522 Non-pressure chronic ulcer of other part of left foot with fat layer exposed; E11.42 Type 2 diabetes mellitus with diabetic polyneuropathy; Z79.4 Long term (current) use of insulin; F17.200 Nicotine dependence, unspecified, uncomplicated; Z89.422 Acquired absence of other left toe(s) | CPT/HCPCS: 11042; A6209 ==

== ENCOUNTER 2020-11-08 13:25 | Outpatient (CLI) | payer MEDICARE, OTHER | END 2020-11-08 23:59 | disposition home health service (06) | LOC: WOU 13:25 | PROVIDERS: ATTEND Podiatrist Foot & Ankle Surgery | DX: E11.621 Type 2 diabetes mellitus with foot ulcer (principal); L97.522 Non-pressure chronic ulcer of other part of left foot with fat layer exposed; E11.42 Type 2 diabetes mellitus with diabetic polyneuropathy; Z79.4 Long term (current) use of insulin; F17.200 Nicotine dependence, unspecified, uncomplicated; Z89.422 Acquired absence of other left toe(s) | CPT/HCPCS: 11042; A6209 ==

== ENCOUNTER 2020-11-18 13:25 | Outpatient (CLI) | payer MEDICARE, OTHER | END 2020-11-18 23:59 | disposition home health service (06) | LOC: WOU 13:25 | PROVIDERS: ATTEND Podiatrist Foot & Ankle Surgery | DX: E11.621 Type 2 diabetes mellitus with foot ulcer (principal); L97.522 Non-pressure chronic ulcer of other part of left foot with fat layer exposed; E11.42 Type 2 diabetes mellitus with diabetic polyneuropathy; Z79.4 Long term (current) use of insulin; F17.200 Nicotine dependence, unspecified, uncomplicated; Z89.422 Acquired absence of other left toe(s) | CPT/HCPCS: 11042 ==

== ENCOUNTER 2020-11-29 13:15 | Outpatient (CLI) | payer MEDICARE, OTHER | END 2020-11-29 23:59 | disposition home health service (06) | LOC: WOU 13:15 | PROVIDERS: ATTEND Podiatrist Foot & Ankle Surgery | DX: E11.621 Type 2 diabetes mellitus with foot ulcer (principal); L97.525 Non-pressure chronic ulcer of other part of left foot with muscle involvement without evidence of necrosis; E11.42 Type 2 diabetes mellitus with diabetic polyneuropathy; E11.69 Type 2 diabetes mellitus with other specified complication; M86.672 Other chronic osteomyelitis, left ankle and foot; Z79.4 Long term (current) use of insulin; F17.200 Nicotine dependence, unspecified, uncomplicated; Z89.422 Acquired absence of other left toe(s) | CPT/HCPCS: 11043 ==

== ENCOUNTER 2020-12-06 13:20 | Outpatient (CLI) | payer MEDICARE, OTHER ==
[2020-12-06] MEDS ORDERED: CADEXOMER IODINE UD 5 GM TUBE ONE (14:23)
== END 2020-12-06 23:59 | disposition home health service (06) ==
LOC: WOU 13:20
PROVIDERS: ATTEND Podiatrist Foot & Ankle Surgery
DX: E11.621 Type 2 diabetes mellitus with foot ulcer (principal); L97.523 Non-pressure chronic ulcer of other part of left foot with necrosis of muscle; L97.518 Non-pressure chronic ulcer of other part of right foot with other specified severity; E11.42 Type 2 diabetes mellitus with diabetic polyneuropathy; F17.200 Nicotine dependence, unspecified, uncomplicated; Z79.4 Long term (current) use of insulin; Z89.422 Acquired absence of other left toe(s)
CPT/HCPCS: 11043; A6407

== ENCOUNTER 2020-12-20 13:20 | Outpatient (CLI) | payer MEDICARE, OTHER | END 2020-12-20 23:59 | disposition home health service (06) | LOC: WOU 13:20 | PROVIDERS: ATTEND Podiatrist Foot & Ankle Surgery | DX: T81.31XA Disruption of external operation (surgical) wound, not elsewhere classified, initial encounter (principal); T86.821 Skin graft (allograft) (autograft) failure; E11.42 Type 2 diabetes mellitus with diabetic polyneuropathy; Z79.4 Long term (current) use of insulin; F17.200 Nicotine dependence, unspecified, uncomplicated; Z89.432 Acquired absence of left foot | CPT/HCPCS: 11043 ==

== ENCOUNTER 2020-12-27 13:20 | Outpatient (CLI) | payer MEDICARE, OTHER ==
[2020-12-27] MEDS ORDERED: COLLAGENASE 5 GM TUBE UD TP ONE (14:10)
== END 2020-12-27 23:59 | disposition home health service (06) ==
LOC: WOU 13:20
PROVIDERS: ATTEND Podiatrist Foot & Ankle Surgery
DX: T81.31XA Disruption of external operation (surgical) wound, not elsewhere classified, initial encounter (principal); T86.821 Skin graft (allograft) (autograft) failure; E11.42 Type 2 diabetes mellitus with diabetic polyneuropathy; E11.51 Type 2 diabetes mellitus with diabetic peripheral angiopathy without gangrene; Z79.4 Long term (current) use of insulin; F17.200 Nicotine dependence, unspecified, uncomplicated; Z89.432 Acquired absence of left foot
CPT/HCPCS: 11043

== ENCOUNTER 2021-01-06 13:20 | Outpatient (CLI) | payer MEDICARE, OTHER ==
[2021-01-06] MEDS ORDERED: COLLAGENASE 5 GM TUBE UD TP ONE (14:17)
== END 2021-01-06 23:59 | disposition home health service (06) ==
LOC: WOU 13:20
PROVIDERS: ATTEND Podiatrist Foot & Ankle Surgery
DX: E11.621 Type 2 diabetes mellitus with foot ulcer (principal); L97.522 Non-pressure chronic ulcer of other part of left foot with fat layer exposed; E11.42 Type 2 diabetes mellitus with diabetic polyneuropathy; F17.200 Nicotine dependence, unspecified, uncomplicated; Z89.432 Acquired absence of left foot; Z79.4 Long term (current) use of insulin
CPT/HCPCS: 11042

== ENCOUNTER 2021-01-17 13:25 | Outpatient (CLI) | payer MEDICARE, OTHER ==
[2021-01-17] MEDS ORDERED: COLLAGENASE 5 GM TUBE UD TP ONE (13:59)
== END 2021-01-17 23:59 | disposition home health service (06) ==
LOC: WOU 13:25
PROVIDERS: ATTEND Podiatrist Foot & Ankle Surgery
DX: E11.621 Type 2 diabetes mellitus with foot ulcer (principal); L97.522 Non-pressure chronic ulcer of other part of left foot with fat layer exposed; E11.42 Type 2 diabetes mellitus with diabetic polyneuropathy; F17.200 Nicotine dependence, unspecified, uncomplicated; L84 Corns and callosities; Z89.432 Acquired absence of left foot; Z79.4 Long term (current) use of insulin; I10 Essential (primary) hypertension
CPT/HCPCS: 11042; 11055

== ENCOUNTER 2021-01-24 13:20 | Outpatient (CLI) | payer MEDICARE, OTHER ==
[2021-01-24] MEDS ORDERED: COLLAGENASE 5 GM TUBE UD TP ONE (13:47)
== END 2021-01-24 23:59 | disposition home health service (06) ==
LOC: WOU 13:20
PROVIDERS: ATTEND Podiatrist Foot & Ankle Surgery
DX: E11.621 Type 2 diabetes mellitus with foot ulcer (principal); L97.522 Non-pressure chronic ulcer of other part of left foot with fat layer exposed; E11.42 Type 2 diabetes mellitus with diabetic polyneuropathy; Z79.4 Long term (current) use of insulin; F17.200 Nicotine dependence, unspecified, uncomplicated; Z89.432 Acquired absence of left foot
CPT/HCPCS: 11042

== ENCOUNTER 2021-01-31 13:13 | Outpatient (CLI) | payer MEDICARE, OTHER ==
[2021-01-31] MEDS ORDERED: COLLAGENASE 5 GM TUBE UD TP ONE (13:56)
== END 2021-01-31 23:59 | disposition home health service (06) ==
LOC: WOU 13:13
PROVIDERS: ATTEND Podiatrist Foot & Ankle Surgery
DX: E11.621 Type 2 diabetes mellitus with foot ulcer (principal); L97.522 Non-pressure chronic ulcer of other part of left foot with fat layer exposed; E11.42 Type 2 diabetes mellitus with diabetic polyneuropathy; Z79.4 Long term (current) use of insulin; F17.200 Nicotine dependence, unspecified, uncomplicated; Z89.432 Acquired absence of left foot
CPT/HCPCS: 11042

== ENCOUNTER 2021-02-07 13:00 | Outpatient (CLI) | payer MEDICARE, OTHER | END 2021-02-07 23:59 | disposition home health service (06) | LOC: WOU 13:00 | PROVIDERS: ATTEND Podiatrist Foot & Ankle Surgery | DX: E11.621 Type 2 diabetes mellitus with foot ulcer (principal); L97.522 Non-pressure chronic ulcer of other part of left foot with fat layer exposed; E11.42 Type 2 diabetes mellitus with diabetic polyneuropathy; Z79.4 Long term (current) use of insulin; F17.200 Nicotine dependence, unspecified, uncomplicated; Z89.432 Acquired absence of left foot | CPT/HCPCS: 11042; A6209 ==

== ENCOUNTER 2021-02-14 12:45 | Outpatient (CLI) | payer MEDICARE, OTHER | END 2021-02-14 23:59 | disposition home health service (06) | LOC: WOU 12:45 | PROVIDERS: ATTEND Podiatrist Foot & Ankle Surgery | DX: Z09 Encounter for follow-up examination after completed treatment for conditions other than malignant neoplasm (principal); Z86.31 Personal history of diabetic foot ulcer; E11.42 Type 2 diabetes mellitus with diabetic polyneuropathy; I10 Essential (primary) hypertension; Z87.891 Personal history of nicotine dependence; Z89.422 Acquired absence of other left toe(s); Z79.4 Long term (current) use of insulin | CPT/HCPCS: G0463 ==

== ENCOUNTER → 2021-02-14 | Outpatient (CLI) | payer MEDICARE, OTHER | END | disposition home or self-care (01) | LOC: MSC 15:30 | PROVIDERS: ATTEND Internal Medicine | DX: R32 Unspecified urinary incontinence (principal); M54.5 Low back pain; E11.65 Type 2 diabetes mellitus with hyperglycemia; Z79.4 Long term (current) use of insulin; I10 Essential (primary) hypertension; Z87.891 Personal history of nicotine dependence; E78.5 Hyperlipidemia, unspecified; I73.9 Peripheral vascular disease, unspecified; E66.9 Obesity, unspecified; Z79.899 Other long term (current) drug therapy ==

== ENCOUNTER 2021-05-30 10:42 | Outpatient (CLI) | payer MEDICARE, OTHER ==
[2021-05-30 12:35] LABS: BASOPHILS % (AUTO) 0.3 % (0.0-2.0); EOSINOPHILS % (AUTO) 2.2 % (0.0-6.0); HEMATOCRIT 44 % (33-45); HEMOGLOBIN 14.3 g/dL (11.5-14.8); LYMPHOCYTES # (AUTO) 3.6 K/uL (0.8-4.8); LYMPHOCYTES % (AUTO) 32.2 % (20.0-44.0); MEAN CORPUSCULAR HGB CONC 33 g/dl (31.0-36.0); MEAN CORPUSCULAR VOLUME 84 fL (82-100); MONOCYTES # (AUTO) 0.7 K/uL (0.1-1.30); MONOCYTES % (AUTO) 6.1 % (2.0-12.0); NEUTROPHILS # (AUTO) 6.6 K/uL (1.8-8.9); NEUTROPHILS % (AUTO) 59.2 % (43.0-81.0); PLATELET COUNT (AUTO) 252 K/uL (150-450); WHITE BLOOD COUNT (AUTO) 11.1 K/uL (4.3-11.0)
[2021-05-30 14:27] LABS: URINE TOTAL PROTEIN 15.3 mg/dL (0-11.9)
[2021-05-30 14:59] LABS: CHOLESTEROL 148 mg/dL (<200); HDL CHOLESTEROL 53 mg/dL (40-60); LDL 75 mg/dL (0-99); TRIGLYCERIDES 116 mg/dL (30-150)
[2021-05-30 15:05] LABS: C-REACTIVE PROTEIN < 0.2 mg/dL (0.0-0.9)
[2021-05-30 15:18] LABS: ALANINE AMINOTRANSFERASE 28 U/L (12-78); ALBUMIN 3.7 g/dL (3.4-5.0); ALKALINE PHOSPHATASE 95 U/L (46-116); ASPARTATE AMINOTRANSFERASE 22 U/L (15-37); BILIRUBIN,TOTAL 0.5 mg/dL (0.2-1.0); CALCIUM, SERUM 8.8 mg/dL (8.5-10.1); CARBON DIOXIDE 24 mmol/L (21-32); CHLORIDE 105 mmol/L (98-107); CREATININE 0.8 mg/dL (0.6-1.3); GLUCOSE 127 mg/dL (74-106); MAGNESIUM 2.5 mg/dL (1.8-2.4); PHOSPHORUS 4.3 mg/dL (2.5-4.9); POTASSIUM 3.9 mmol/L (3.5-5.1); SODIUM SERUM 140 mmol/L (136-145); TOTAL PROTEIN, SERUM 7.5 g/dL (6.4-8.2); UREA NITROGEN, BLOOD 17 mg/dL (7-18)
[2021-05-30 15:20] LABS: BILIRUBIN,URINE NEGATIVE (NEGATIVE); COLOR,URINE YELLOW (YELLOW); LEUKOCYTE ESTERASE ,URINE TRACE (NEGATIVE); NITRITE, URINE NEGATIVE (NEGATIVE); PROTEIN,URINE NEGATIVE (NEGATIVE); UGLUCOSE >=1000 mg/dL (NEGATIVE); UROBILINOGEN,URINE 0.2 EU/dL (0.2)
[2021-05-30 16:01] LABS: BACTERIA,URINE Few /HPF (None Seen); SQUAMOUS EPITHELIAL CELL,UR Moderate /HPF (None Seen)
== END 2021-05-30 23:59 | disposition home or self-care (01) ==
LOC: MSC 10:42
PROVIDERS: ATTEND Internal Medicine
DX: M25.512 Pain in left shoulder (principal); E11.9 Type 2 diabetes mellitus without complications; Z79.4 Long term (current) use of insulin; Z79.84 Long term (current) use of oral hypoglycemic drugs; R32 Unspecified urinary incontinence; M54.50 Low back pain, unspecified; E78.5 Hyperlipidemia, unspecified; I73.9 Peripheral vascular disease, unspecified; E66.9 Obesity, unspecified; Z68.38 Body mass index [BMI] 38.0-38.9, adult; Z79.899 Other long term (current) drug therapy
CPT/HCPCS: 36415; 80053; 80061; 81001; 82043; 82306; 82570; 82607; 82746; 83036; 83735; 84100; 84155; 84439; 84443; 85025; 85652; 86140; 87086; G0463

== ENCOUNTER → 2021-06-06 | Outpatient (CLI) | payer MEDICARE, OTHER | END | disposition home or self-care (01) | LOC: MSC 10:00 | PROVIDERS: ATTEND Internal Medicine | DX: M25.512 Pain in left shoulder (principal); M85.812 Other specified disorders of bone density and structure, left shoulder; R32 Unspecified urinary incontinence; M54.50 Low back pain, unspecified; E11.9 Type 2 diabetes mellitus without complications; Z79.4 Long term (current) use of insulin; Z79.84 Long term (current) use of oral hypoglycemic drugs; I10 Essential (primary) hypertension; E78.5 Hyperlipidemia, unspecified; I73.9 Peripheral vascular disease, unspecified; E66.9 Obesity, unspecified; Z79.899 Other long term (current) drug therapy ==

== ENCOUNTER 2021-11-14 10:49 | Outpatient (CLI) | payer MEDICARE, OTHER ==
[2021-11-14 11:56] LABS: BASOPHILS % (AUTO) 0.3 % (0.0-2.0); EOSINOPHILS % (AUTO) 1.9 % (0.0-6.0); HEMATOCRIT 44 % (33-45); HEMOGLOBIN 14.3 g/dL (11.5-14.8); LYMPHOCYTES # (AUTO) 3.9 K/uL (0.8-4.8); LYMPHOCYTES % (AUTO) 37.1 % (20.0-44.0); MEAN CORPUSCULAR HGB CONC 33 g/dl (31.0-36.0); MEAN CORPUSCULAR VOLUME 83 fL (82-100); MONOCYTES # (AUTO) 0.6 K/uL (0.1-1.30); MONOCYTES % (AUTO) 6.1 % (2.0-12.0); NEUTROPHILS # (AUTO) 5.7 K/uL (1.8-8.9); NEUTROPHILS % (AUTO) 54.6 % (43.0-81.0); PLATELET COUNT (AUTO) 241 K/uL (150-450); RED BLOOD CELL COUNT(AUTO) 5.24 MIL/uL (4.0-5.2); WHITE BLOOD COUNT (AUTO) 10.5 K/uL (4.3-11.0)
[2021-11-14 12:14] LABS: ALBUMIN 3.7 g/dL (3.4-5.0); BILIRUBIN,TOTAL 0.4 mg/dL (0.2-1.0); CALCIUM, SERUM 9.5 mg/dL (8.5-10.1); CREATININE 0.9 mg/dL (0.6-1.3); MAGNESIUM 2.2 mg/dL (1.8-2.4); PHOSPHORUS 4.6 mg/dL (2.5-4.9); POTASSIUM 3.9 mmol/L (3.5-5.1); TOTAL PROTEIN, SERUM 7.5 g/dL (6.4-8.2)
[2021-11-14 12:25] LABS: BILIRUBIN,URINE NEGATIVE (NEGATIVE); COLOR,URINE YELLOW (YELLOW); LEUKOCYTE ESTERASE ,URINE SMALL (NEGATIVE); NITRITE, URINE NEGATIVE (NEGATIVE); PH,URINE 5.5 (5.0-8.0); PROTEIN,URINE NEGATIVE (NEGATIVE); UGLUCOSE >=1000 mg/dL (NEGATIVE); UROBILINOGEN,URINE 0.2 EU/dL (0.2)
[2021-11-14 12:39] LABS: BACTERIA,URINE Many /HPF (None Seen); RBC,URINE 0-2 /HPF (0-2)
[2021-11-14 13:04] LABS: URINE TOTAL PROTEIN 7.4 mg/dL (0-11.9)
[2021-11-14 14:06] LABS: C-REACTIVE PROTEIN 0.2 mg/dL (0.0-0.9); FREE T4 (FREE THYROXINE) 1.14 ng/dL (0.76-1.46); THYROID STIMULATING HORMONE 1.815 uIU/mL (0.358-3.74)
== END 2021-11-14 23:59 | disposition home or self-care (01) ==
LOC: MSC 10:49
PROVIDERS: ATTEND Internal Medicine
DX: E11.65 Type 2 diabetes mellitus with hyperglycemia (principal); Z79.4 Long term (current) use of insulin; Z79.84 Long term (current) use of oral hypoglycemic drugs; R32 Unspecified urinary incontinence; M54.50 Low back pain, unspecified; I10 Essential (primary) hypertension; E78.5 Hyperlipidemia, unspecified; I73.9 Peripheral vascular disease, unspecified; E66.9 Obesity, unspecified; Z79.899 Other long term (current) drug therapy
CPT/HCPCS: 36415; 80053; 80061; 81001; 82043; 82306; 82570; 82607; 82728; 82746; 83036; 83540; 83550; 83735; 84100; 84155; 84439; 84443; 85025; 85652; 86140; 87086; G0463

== ENCOUNTER → 2021-11-21 | Outpatient (CLI) | payer MEDICARE, OTHER | END | disposition home or self-care (01) | LOC: MSC 14:00 | PROVIDERS: ATTEND Internal Medicine | DX: E11.65 Type 2 diabetes mellitus with hyperglycemia (principal); Z79.4 Long term (current) use of insulin; Z79.84 Long term (current) use of oral hypoglycemic drugs; R32 Unspecified urinary incontinence; M54.50 Low back pain, unspecified; I10 Essential (primary) hypertension; E78.5 Hyperlipidemia, unspecified; I73.9 Peripheral vascular disease, unspecified; Z89.422 Acquired absence of other left toe(s); E66.9 Obesity, unspecified ==

== ENCOUNTER 2022-05-17 11:20 | Outpatient (CLI) | payer MEDICARE, OTHER ==
[2022-05-17 12:34] LABS: BASOPHILS # (AUTO) 0.1 K/uL (0.0-0.2); BASOPHILS % (AUTO) 0.6 % (0.0-2.0); EOSINOPHILS % (AUTO) 1.9 % (0.0-6.0); HEMATOCRIT 44 % (33-45); HEMOGLOBIN 14.4 g/dL (11.5-14.8); LYMPHOCYTES # (AUTO) 3.2 K/uL (0.8-4.8); LYMPHOCYTES % (AUTO) 31.6 % (20.0-44.0); MEAN CORPUSCULAR HGB CONC 33 g/dl (31.0-36.0); MEAN CORPUSCULAR VOLUME 83 fL (82-100); MONOCYTES # (AUTO) 0.7 K/uL (0.1-1.30); MONOCYTES % (AUTO) 6.8 % (2.0-12.0); NEUTROPHILS # (AUTO) 5.9 K/uL (1.8-8.9); NEUTROPHILS % (AUTO) 59.1 % (43.0-81.0); PLATELET COUNT (AUTO) 225 K/uL (150-450); RED BLOOD CELL COUNT(AUTO) 5.26 MIL/uL (4.0-5.2)
[2022-05-17 12:44] LABS: BILIRUBIN,URINE NEGATIVE (NEGATIVE); COLOR,URINE YELLOW (YELLOW); LEUKOCYTE ESTERASE ,URINE NEGATIVE (NEGATIVE); NITRITE, URINE NEGATIVE (NEGATIVE); PH,URINE 5.5 (5.0-8.0); PROTEIN,URINE NEGATIVE (NEGATIVE); UGLUCOSE 3+ mg/dL (NEGATIVE); URINE TOTAL PROTEIN 6.1 mg/dL (0-11.9); UROBILINOGEN,URINE 0.2 EU/dL (0.2)
[2022-05-17 13:29] LABS: ALANINE AMINOTRANSFERASE 28 U/L (12-78); ALBUMIN 3.6 g/dL (3.4-5.0); ALKALINE PHOSPHATASE 99 U/L (46-116); ASPARTATE AMINOTRANSFERASE 19 U/L (15-37); BILIRUBIN,TOTAL 0.3 mg/dL (0.2-1.0); CALCIUM, SERUM 9.3 mg/dL (8.5-10.1); CARBON DIOXIDE 24 mmol/L (21-32); CHLORIDE 105 mmol/L (98-107); CREATININE 0.9 mg/dL (0.6-1.3); GLUCOSE 214 mg/dL (74-106); MAGNESIUM 2.2 mg/dL (1.8-2.4); PHOSPHORUS 4.5 mg/dL (2.5-4.9); POTASSIUM 3.7 mmol/L (3.5-5.1); SODIUM SERUM 140 mmol/L (136-145); TOTAL PROTEIN, SERUM 7.3 g/dL (6.4-8.2); UREA NITROGEN, BLOOD 18 mg/dL (7-18)
[2022-05-17 13:33] LABS: CHOLESTEROL 136 mg/dL (<200); FREE T4 (FREE THYROXINE) 1.02 ng/dL (0.76-1.46); HDL CHOLESTEROL 52 mg/dL (40-60); LDL 64 mg/dL (0-99); THYROID STIMULATING HORMONE 1.232 uIU/mL (0.358-3.74); TRIGLYCERIDES 124 mg/dL (30-150)
[2022-05-17 13:37] LABS: C-REACTIVE PROTEIN < 0.2 mg/dL (0.0-0.9)
[2022-05-17 13:43] LABS: BACTERIA,URINE None seen /HPF (None Seen); RBC,URINE 0-2 /HPF (0-2); SQUAMOUS EPITHELIAL CELL,UR Moderate /HPF (None Seen)
== END 2022-05-17 23:59 | disposition home or self-care (01) ==
LOC: MSC 11:20
PROVIDERS: ATTEND Internal Medicine
DX: E11.9 Type 2 diabetes mellitus without complications (principal); Z79.4 Long term (current) use of insulin; Z79.84 Long term (current) use of oral hypoglycemic drugs; Z91.199 Patient's noncompliance with other medical treatment and regimen due to unspecified reason; I10 Essential (primary) hypertension; R32 Unspecified urinary incontinence; M54.50 Low back pain, unspecified; Z79.1 Long term (current) use of non-steroidal anti-inflammatories (NSAID); E78.5 Hyperlipidemia, unspecified; I73.9 Peripheral vascular disease, unspecified; E66.9 Obesity, unspecified; Z68.37 Body mass index [BMI] 37.0-37.9, adult; Z79.899 Other long term (current) drug therapy
CPT/HCPCS: 80061; 85025; 83735; 83036; 84100; 85652; 81001; 84439; 82746; 84443; 82607; 80053; 86140; 82306; 82043; 84155; G0463; 36415

== ENCOUNTER 2022-11-20 11:00 | Outpatient (CLI) | payer MEDICARE, OTHER | END 2022-11-20 23:59 | disposition home or self-care (01) | LOC: MSC 11:00 | PROVIDERS: ATTEND Internal Medicine | DX: E11.9 Type 2 diabetes mellitus without complications (principal); Z79.4 Long term (current) use of insulin; Z79.84 Long term (current) use of oral hypoglycemic drugs; Z91.199 Patient's noncompliance with other medical treatment and regimen due to unspecified reason; I10 Essential (primary) hypertension; R32 Unspecified urinary incontinence; M54.50 Low back pain, unspecified; Z79.1 Long term (current) use of non-steroidal anti-inflammatories (NSAID); E78.5 Hyperlipidemia, unspecified; I73.9 Peripheral vascular disease, unspecified; E66.9 Obesity, unspecified; Z79.899 Other long term (current) drug therapy ==

== ENCOUNTER 2023-03-28 11:10 | Outpatient (CLI) | payer MEDICARE, OTHER ==
[2023-03-28 13:48] LABS: BASOPHILS % (AUTO) 0.4 % (0.0-2.0); EOSINOPHILS # (AUTO) 0.2 K/uL (0.0-0.7); HEMATOCRIT 45 % (33-45); LYMPHOCYTES # (AUTO) 3.5 K/uL (0.8-4.8); LYMPHOCYTES % (AUTO) 33.5 % (20.0-44.0); MEAN CORPUSCULAR HEMOGLOBIN 28 PG (26.0-33.0); MEAN CORPUSCULAR HGB CONC 33 g/dl (31.0-36.0); MEAN CORPUSCULAR VOLUME 83 fL (82-100); MONOCYTES # (AUTO) 0.6 K/uL (0.1-1.30); MONOCYTES % (AUTO) 5.7 % (2.0-12.0); NEUTROPHILS # (AUTO) 6.2 K/uL (1.8-8.9); NEUTROPHILS % (AUTO) 58.4 % (43.0-81.0); PLATELET COUNT (AUTO) 250 K/uL (150-450); RED BLOOD CELL COUNT(AUTO) 5.41 MIL/uL (4.0-5.2); RED CELL DISTRIBUTION WIDTH 14.1 % (11.5-15.0); WHITE BLOOD COUNT (AUTO) 10.5 K/uL (4.3-11.0)
[2023-03-28 14:08] LABS: ERYTHROCYTE SEDIMENTATION RATE 17 MM/HR (0-30)
[2023-03-28 14:26] LABS: CHOLESTEROL 163 mg/dL (<200); FERRITIN 119 ng/mL (8-388); FREE T4 (FREE THYROXINE) 1.03 ng/dL (0.76-1.46); HDL CHOLESTEROL 48 mg/dL (40-60); IRON, SERUM 93 ug/dl (50-175); LDL 88 mg/dL (0-99); TOTAL IRON BINDING CAPACITY 329 ug/dl (250-450); TRIGLYCERIDES 145 mg/dL (30-150)
[2023-03-28 14:27] LABS: C-REACTIVE PROTEIN < 0.2 mg/dL (0.0-0.9)
[2023-03-28 14:39] LABS: CALCIUM, SERUM 9.5 mg/dL (8.5-10.1); CARBON DIOXIDE 28 mmol/L (21-32); CHLORIDE 104 mmol/L (98-107); CREATININE 0.7 mg/dL (0.6-1.3); GLUCOSE 176 mg/dL (74-106); POTASSIUM 3.6 mmol/L (3.5-5.1); SODIUM SERUM 138 mmol/L (136-145); UREA NITROGEN, BLOOD 18 mg/dL (7-18)
[2023-03-28 14:40] LABS: ALANINE AMINOTRANSFERASE 39 U/L (12-78); ALBUMIN 3.7 g/dL (3.4-5.0); ALKALINE PHOSPHATASE 97 U/L (46-116); ASPARTATE AMINOTRANSFERASE 20 U/L (15-37); BILIRUBIN,TOTAL 0.3 mg/dL (0.2-1.0); MAGNESIUM 2.2 mg/dL (1.8-2.4); PHOSPHORUS 3.5 mg/dL (2.5-4.9); TOTAL PROTEIN, SERUM 7.7 g/dL (6.4-8.2)
[2023-03-29 07:06] LABS: VIT D, 25-HYDROXY 77.4 ng/mL (30.0-100.0)
[2023-03-29 12:06] LABS: FOLIC ACID > 20.0 ng/mL (>3.0)
== END 2023-03-28 23:59 | disposition home or self-care (01) ==
LOC: MSC 11:10
PROVIDERS: ATTEND Internal Medicine
DX: E11.9 Type 2 diabetes mellitus without complications (principal); Z79.4 Long term (current) use of insulin; Z79.84 Long term (current) use of oral hypoglycemic drugs; Z91.199 Patient's noncompliance with other medical treatment and regimen due to unspecified reason; I73.9 Peripheral vascular disease, unspecified; I10 Essential (primary) hypertension; R32 Unspecified urinary incontinence; M54.50 Low back pain, unspecified; Z79.1 Long term (current) use of non-steroidal anti-inflammatories (NSAID); E78.5 Hyperlipidemia, unspecified; E66.9 Obesity, unspecified; Z79.899 Other long term (current) drug therapy
CPT/HCPCS: 80061; 85025; 83540; 83735; 83036; 84100; 85652; 36415; 84439; 82746; 84443; 82607; 80053; 82728; 86140; 82306; G0463

== ENCOUNTER 2024-03-19 10:56 | Outpatient (CLI) | payer MEDICARE, OTHER ==
[2024-03-19 12:04] LABS: URINE TOTAL PROTEIN 14.4 mg/dL (0-11.9)
[2024-03-19 12:07] LABS: IRON, SERUM 68 ug/dl (50-175); TOTAL IRON BINDING CAPACITY 324 ug/dl (250-450)
[2024-03-19 12:28] LABS: C-REACTIVE PROTEIN < 0.20 mg/dL (0.0-0.30); CHOLESTEROL 118 mg/dL (<200); FERRITIN 126 ng/mL (8-388); HDL CHOLESTEROL 56 mg/dL (40-60); LDL 47 mg/dL (0-99); TRIGLYCERIDES 104 mg/dL (30-150)
[2024-03-19 12:36] LABS: ALANINE AMINOTRANSFERASE 31 U/L (12-78); ALBUMIN 3.9 g/dL (3.4-5.0); ALKALINE PHOSPHATASE 94 U/L (46-116); ASPARTATE AMINOTRANSFERASE 23 U/L (15-37); BILIRUBIN,TOTAL 0.5 mg/dL (0.2-1.0); CALCIUM, SERUM 9.5 mg/dL (8.5-10.1); CARBON DIOXIDE 28 mmol/L (21-32); CHLORIDE 103 mmol/L (98-107); CREATININE 0.7 mg/dL (0.6-1.3); GLUCOSE 149 mg/dL (74-106); MAGNESIUM 2.1 mg/dL (1.8-2.4); PHOSPHORUS 4.1 mg/dL (2.5-4.9); POTASSIUM 3.9 mmol/L (3.5-5.1); SODIUM SERUM 140 mmol/L (136-145); TOTAL PROTEIN, SERUM 7.7 g/dL (6.4-8.2); UREA NITROGEN, BLOOD 20 mg/dL (7-18)
[2024-03-19 12:40] LABS: ADD URINE CULTURE NO; APPEARANCE,URINE CLEAR (CLEAR); BACTERIA,URINE Rare /HPF (None Seen); BILIRUBIN,URINE NEGATIVE (NEGATIVE); BLOOD, URINE TRACE-INTA Ery/uL (NEGATIVE); COLOR,URINE YELLOW (YELLOW); KETONES,URINE NEGATIVE (NEGATIVE); LEUKOCYTE ESTERASE ,URINE NEGATIVE (NEGATIVE); NITRITE, URINE NEGATIVE (NEGATIVE); PROTEIN,URINE NEGATIVE (NEGATIVE); SQUAMOUS EPITHELIAL CELL,UR Few /HPF (None Seen); UGLUCOSE 3+ mg/dL (NEGATIVE); UROBILINOGEN,URINE 0.2 EU/dL (0.2); WBC,URINE 0-2 /HPF (0-3)
[2024-03-19 13:03] LABS: ERYTHROCYTE SEDIMENTATION RATE 23 MM/HR (0-30)
[2024-03-19 13:49] LABS: BASOPHILS % (AUTO) 0.3 % (0.0-2.0); EOSINOPHILS # (AUTO) 0.2 K/uL (0.0-0.7); EOSINOPHILS % (AUTO) 1.7 % (0.0-6.0); HEMATOCRIT 46 % (33-45); HEMOGLOBIN 15.2 g/dL (11.5-14.8); LYMPHOCYTES # (AUTO) 3.6 K/uL (0.8-4.8); LYMPHOCYTES % (AUTO) 33.3 % (20.0-44.0); MEAN CORPUSCULAR HEMOGLOBIN 28 PG (26.0-33.0); MEAN CORPUSCULAR HGB CONC 33 g/dl (31.0-36.0); MEAN CORPUSCULAR VOLUME 84 fL (82-100); MONOCYTES # (AUTO) 0.6 K/uL (0.1-1.30); MONOCYTES % (AUTO) 5.3 % (2.0-12.0); NEUTROPHILS # (AUTO) 6.4 K/uL (1.8-8.9); NEUTROPHILS % (AUTO) 59.4 % (43.0-81.0); PLATELET COUNT (AUTO) 249 K/uL (150-450); RED CELL DISTRIBUTION WIDTH 14.5 % (11.5-15.0); WHITE BLOOD COUNT (AUTO) 10.8 K/uL (4.3-11.0)
[2024-03-20 08:08] LABS: ALBUMIN, URINE 19.2 ug/mL (Not Estab.); FOLIC ACID 14.7 ng/mL (>3.0)
== END 2024-03-19 23:59 | disposition home or self-care (01) ==
LOC: MSC 10:56
PROVIDERS: ATTEND Internal Medicine
DX: Z00.00 Encounter for general adult medical examination without abnormal findings (principal); E11.9 Type 2 diabetes mellitus without complications; Z79.85 Long-term (current) use of injectable non-insulin antidiabetic drugs; Z79.4 Long term (current) use of insulin; Z79.84 Long term (current) use of oral hypoglycemic drugs; I10 Essential (primary) hypertension; E66.9 Obesity, unspecified; E78.5 Hyperlipidemia, unspecified; I73.9 Peripheral vascular disease, unspecified; R32 Unspecified urinary incontinence; M47.816 Spondylosis without myelopathy or radiculopathy, lumbar region
CPT/HCPCS: 80061; 85025; 83540; 83735; 83036; 84100; 85652; 81001; 84439; 82746; 82607; 80053; 82728; 86140; 84156; 82306; 83970; G0463; 36415

== ENCOUNTER → 2025-02-12 | Emergency (ER) | payer MEDICARE, OTHER ==
[~2025-02-12] VITALS: Ht 154.9 cm; Wt 85.7 kg
[~2025-02-12] MED LIST changes: +PROPOFOL 20 ML IV ONE
[2025-02-12] MEDS: PROPOFOL 200 MG/20 ML VIAL IV ONE (12:18)
[2025-02-12 13:21] VITALS: BP 129/80; TEMP 98; O2SAT 100
== END | disposition home or self-care (01) ==
LOC: ER 18:38
DX: S43.014A Anterior dislocation of right humerus, initial encounter (principal); I10 Essential (primary) hypertension; E11.9 Type 2 diabetes mellitus without complications; F17.200 Nicotine dependence, unspecified, uncomplicated; Z79.01 Long term (current) use of anticoagulants; Z79.1 Long term (current) use of non-steroidal anti-inflammatories (NSAID); Z79.82 Long term (current) use of aspirin; Z79.84 Long term (current) use of oral hypoglycemic drugs; Z79.899 Other long term (current) drug therapy; W18.39XA Other fall on same level, initial encounter; Y93.89 Activity, other specified; Y92.89 Other specified places as the place of occurrence of the external cause; Y99.8 Other external cause status
CPT/HCPCS: 99285; 23650; 99152; 73030 ×2; J2704; G0500